=== PATIENT | male | born 1945 | race Two or more races ===

== ENCOUNTER 2021-07-01 13:43 | Emergency (ER) | payer OTHER ==
[~2021-07-01] VITALS: Ht 160 cm; Wt 77.1 kg
[2021-07-01 13:47] VITALS: BP 148/73
== END 2021-07-01 14:10 | disposition left against medical advice (07) ==
LOC: ER 13:43
DX: I10 Essential (primary) hypertension (principal); R07.89 Other chest pain; Z53.21 Procedure and treatment not carried out due to patient leaving prior to being seen by health care provider
CPT/HCPCS: 93005

== ENCOUNTER 2021-10-29 18:10 | Emergency (ER) | payer OTHER ==
[~2021-10-29] VITALS: Ht 162.6 cm; Wt 82.0 kg
[2021-10-29 18:16] VITALS: BP 254/99
== END 2021-10-29 19:04 | disposition left against medical advice (07) ==
LOC: ER 18:10
DX: I10 Essential (primary) hypertension (principal); Z53.21 Procedure and treatment not carried out due to patient leaving prior to being seen by health care provider
CPT/HCPCS: 93005

== ENCOUNTER 2022-06-21 07:02 | Emergency (ER) | payer OTHER ==
[~2022-06-21] VITALS: Ht 162.6 cm; Wt 86.4 kg
[2022-06-21] MEDS ORDERED: HYDROmorphone HCL 2 MG/ML VL/or syr IM ONE (08:30)
[2022-06-21 09:30] VITALS: BP 161/101
== END 2022-06-21 09:51 | disposition home or self-care (01) ==
LOC: ER 07:02
DX: G89.29 Other chronic pain (principal); M54.89 Other dorsalgia
CPT/HCPCS: 96372; 99283; J1170

== ENCOUNTER 2022-07-07 18:56 | Inpatient (IN) | payer OTHER ==
[~2022-07-07] VITALS: Ht 177.8 cm; Wt 96.3 kg
[2022-07-07 19:26] LABS: Basophils # (auto) 0.1 10 ^3/uL (0-0.2); Basophils % (auto) 0.2 % (0.0-2.0); Eosinophils # (auto) 0 10 ^3/uL (0-0.8); Hematocrit 36.6 % (41.0-53.0); Hemoglobin 12.2 g/dL (13.5-17.5); Lymphocytes # (auto) 1.2 10 ^3/uL (0.4-5.4); Lymphocytes % (auto) 4.7 % (10.0-50.0); Mean Corpuscular Hemoglobin 30.3 pg (28.0-32.0); Mean Corpuscular Hgb Conc. 33.5 g/dL (32.0-36.0); Mean Corpuscular Volume 90.6 fL (80.0-100.0); Monocytes # (auto) 2.5 10 ^3/uL (0-1.3); Monocytes % (auto) 9.7 % (0.0-12.0); Neutrophils # (auto) 21.6 10 ^3/uL (1.6-8.6); Neutrophils % (auto) 85.4 % (37.0-80.0); Red Blood Cells 4.04 10^6/uL (4.5-5.90); White Blood Cell 25.3 10^3/uL (4.4-10.8)
[2022-07-07 19:43] LABS: INR 1.03 (0.9-1.15); Partial Thromboplastin Time 25.1 sec (24.6-33.4)
[2022-07-07] MEDS ORDERED: PIPERACILLIN-TAZOB 3.375GM 100 ML IV ONE (19:45)
[2022-07-07 19:47] LABS: Albumin 3.2 g/dL (3.4-5.0); Calcium 9.6 mg/dL (8.5-10.1); Potassium 4.7 mmol/L (3.5-5.1)
[2022-07-07 19:50] LABS: BUN/Creatinine Ratio 27.2 (10.0-20.0); Bilirubin, Total 0.7 mg/dL (0.2-1.0); Total Protein 7.1 g/dL (6.4-8.2)
[2022-07-07] MEDS ORDERED: LEVALBUTEROL HCL 1.25 MG/3 ML NEB NEB SCH (20:12)
[2022-07-07] MEDS ORDERED: FUROSEMIDE 40 MG/4 ML VIAL IV ONE (20:15)
[2022-07-07] MEDS ORDERED: METOPROLOL TARTRATE 1MG/1ML-5ML VIAL IV ONE (20:15)
[2022-07-07] MEDS ORDERED: BUDESONIDE (INHALATION) 0.5 MG/2 ML NEB NEB ONE (20:15)
[2022-07-07] MEDS ORDERED: IOHEXOL 350 MG/ML 100ML IJ ONE (20:17)
[2022-07-07] MEDS ORDERED: LEVALBUTEROL HCL 1.25 MG/3 ML NEB NEB ONE (20:20)
[2022-07-07 21:50] LABS: Urine Bacteria NONE SEEN /hpf (None Seen); Urine Blood Negative /uL (Negative); Urine Mucus FEW (None Seen); Urine WBC <1 /hpf (0 - 3)
[2022-07-07] MEDS ORDERED: LEVO75TA6 PO (22:29)
[2022-07-07] MEDS ORDERED: CLON0.2T PO (22:29)
[2022-07-07] MEDS ORDERED: AMLO-489 PO (22:29)
[2022-07-07] MEDS ORDERED: MONT-8 PO (22:29)
[2022-07-07] MEDS ORDERED: INSLANTI SC (22:29)
[2022-07-07] MEDS ORDERED: MORP15TA PO (22:29)
[2022-07-07] MEDS ORDERED: ATEN50TA PO (22:29)
[2022-07-07] MEDS ORDERED: METH4PAK3 PO (22:29)
[2022-07-07] MEDS ORDERED: INSLISPI SC (22:29)
[2022-07-07] MEDS ORDERED: FLUT50SP NAS (22:29)
[2022-07-07] MEDS ORDERED: DILT120T3 PO (22:29)
[2022-07-07] MEDS ORDERED: AZIT250T9 PO (22:29)
[2022-07-07] MEDS ORDERED: LISI40TA11 (22:29)
[2022-07-07] MEDS ORDERED: AZITHROMYCIN 500MG/ 250ML 250 ML IV ONE (22:30)
[2022-07-07] MEDS ORDERED: cefTRIAXone 1GM/50ML D5W 50 ML IV ONE (22:30)
[2022-07-07] MEDS ORDERED: NITROGLYCERIN 0.4 MG SL TAB SL PRN (22:30)
[2022-07-07] MEDS ORDERED: ALBUTEROL SULF 2.5 MG/0.5ML(0.5%) NEB SOLN NEB PRN (22:30)
[2022-07-07] MEDS ORDERED: MORPHINE SULFATE INJ 2 MG/ml SYRG IV PRN (22:30)
[2022-07-07] MEDS ORDERED: ENOXAPARIN SOD 100 MG/1 ML SYRINGE SC ONE (22:30)
[2022-07-07] MEDS ORDERED: DEXTROSE (50%) 50ML SYRG IV PRN (22:30)
[2022-07-07 22:48] VITALS: BP 166/67
[2022-07-07] MEDS: hydrALAZINE HCL 20 MG/ML VL IV PRN (23:35)
[2022-07-08] VITALS (41 sets, daily range): BP systolic 85–196; BP diastolic 32–85
[2022-07-08] MEDS ORDERED: ONDANSETRON HCL 4 MG/2 ML VIAL IV PRN (00:45)
[2022-07-08] MEDS ORDERED: ALBUTEROL SULF 2.5 MG/0.5ML(0.5%) NEB SOLN NEB ONE (01:45)
[2022-07-08] MEDS ORDERED: IPRATROPIUM BROM 0.5 MG/2.5ML INH SOL NEB ONE (01:45)
[2022-07-08] MEDS: IPRATROPIUM BROM 0.5 MG/2.5ML INH SOL NEB SCH ×6 (01:50→23:18)
[2022-07-08] MEDS: ALBUTEROL SULF 2.5 MG/0.5ML(0.5%) NEB SOLN NEB SCH ×6 (01:50→23:18)
[2022-07-08] MEDS: MORPHINE SULFATE INJ 2 MG/ml SYRG IV PRN ×2 (01:51→09:36)
[2022-07-08] MEDS: LORazepam 2MG/ML-1ML VIAL IV PRN ×2 (01:53→08:45)
[2022-07-08 05:13] LABS: Basophils # (auto) 0.1 10 ^3/uL (0-0.2); Basophils % (auto) 0.2 % (0.0-2.0); Eosinophils # (auto) 0 10 ^3/uL (0-0.8); Hematocrit 35.7 % (41.0-53.0); Hemoglobin 12.2 g/dL (13.5-17.5); Lymphocytes # (auto) 1.6 10 ^3/uL (0.4-5.4); Lymphocytes % (auto) 6.7 % (10.0-50.0); Mean Corpuscular Hemoglobin 30.8 pg (28.0-32.0); Mean Corpuscular Hgb Conc. 34.3 g/dL (32.0-36.0); Mean Corpuscular Volume 89.9 fL (80.0-100.0); Monocytes # (auto) 2.2 10 ^3/uL (0-1.3); Monocytes % (auto) 9.3 % (0.0-12.0); Neutrophils # (auto) 20.1 10 ^3/uL (1.6-8.6); Neutrophils % (auto) 83.8 % (37.0-80.0); Red Blood Cells 3.97 10^6/uL (4.5-5.90)
[2022-07-08 05:29] LABS: BUN/Creatinine Ratio 27.8 (10.0-20.0); Calcium 9.4 mg/dL (8.5-10.1); Potassium 3.9 mmol/L (3.5-5.1)
[2022-07-08 05:32] LABS: Bilirubin, Total 0.8 mg/dL (0.2-1.0); Total Protein 7.7 g/dL (6.4-8.2)
[2022-07-08] MEDS ORDERED: hydrALAZINE HCL 20 MG/ML VL IV ONE (05:45)
[2022-07-08] MEDS ORDERED: FUROSEMIDE 40 MG/4 ML VIAL IV ONE (06:00)
[2022-07-08] MEDS: ACCU-CHEK COMFORT CURVE STRIP VI SCH ×4 (07:26→23:30)
[2022-07-08] MEDS: InsuLIN REG 1unit/0.01ml Soln (100units/ml) SC SCH ×4 (07:31→23:34)
[2022-07-08] MEDS: AZITHROMYCIN 500MG/ 250ML 250 ML IV SCH (08:02)
[2022-07-08] MEDS: cefTRIAXone 1GM/50ML D5W 50 ML IV SCH (08:03)
[2022-07-08] MEDS: LEVOTHYROXINE SODIUM 25 MCG TAB PO SCH (08:26)
[2022-07-08] MEDS: amLODIPine BESYLATE 5 MG TAB PO SCH (08:46)
[2022-07-08] MEDS: MONTELUKAST SODIUM 10 MG TAB PO SCH (08:47)
[2022-07-08] MEDS ORDERED: dilTIAZem HCL 60 MG TAB PO SCH (10:00)
[2022-07-08] MEDS ORDERED: ATENOLOL 50 MG TAB PO SCH (10:00)
[2022-07-08] MEDS ORDERED: ENOXAPARIN SOD 100 MG/1 ML SYRINGE SC SCH (10:00)
[2022-07-08] MEDS ORDERED: HALOPERIDOL LACTATE 5 MG/ML INJ VIAL IM ONE (10:45)
[2022-07-08] MEDS ORDERED: KETOROLAC TROMETH 30 MG/ML 1ML VIAL IV ONE (11:00)
[2022-07-08] MEDS ORDERED: ROCURONIUM 10MG/ML 10ML VIAL IV ONE ×2 (11:33→12:00)
[2022-07-08] MEDS ORDERED: ETOMIDATE (2MG/ML) 20ML VIAL IV ONE ×2 (11:33→12:00)
[2022-07-08] MEDS ORDERED: PROPOFOL 100 ML IV ONE (11:33)
[2022-07-08] MEDS ORDERED: MIDAZOLAM DRIP 50 mg/50mL 50 ML IV ONE (11:34)
[2022-07-08] MEDS ORDERED: fentaNYL Drip 2500mCg/250mlNS 250 ML IV ONE (11:35)
[2022-07-08] MEDS: fentaNYL Drip 2500mCg/250mlNS 250 ML IV SCH (11:42)
[2022-07-08] MEDS: MIDAZOLAM DRIP 50 mg/50mL 50 ML IV SCH ×3 (11:46→21:38)
[2022-07-08] MEDS: PROPOFOL 100 ML IV SCH ×3 (11:58→21:42)
[2022-07-08] MEDS ORDERED: SODIUM CHLORIDE 0.9% 1,000 ML IV SCH (12:00)
[2022-07-08] MEDS: hydrALAZINE HCL 20 MG/ML VL IV PRN (12:53)
[2022-07-08] MEDS ORDERED: CLINIMIX PER PHARMACY 0 ML IV SCH (14:15)
[2022-07-08 15:59] LABS: Magnesium 2.6 mg/dL (1.6-2.6); Phosphorus 3.8 mg/dL (2.5-4.90)
[2022-07-08] MEDS ORDERED: AMIODARONE HCL 150 MG in D5W 5% 100 ML IV ONE ×4 (18:00)
[2022-07-08] MEDS: FUROSEMIDE 40 MG/4 ML VIAL IV SCH (18:00)
[2022-07-08] MEDS ORDERED: AMIODARONE 450mg/250ml AE 250 ML IV SCH ×2 (18:15)
[2022-07-08] MEDS ORDERED: NOREPINEPHRINE 8 MG/250ML KIT 250 ML IV ONE (18:39)
[2022-07-08] MEDS: NOREPINEPHRINE 8 MG/250ML KIT 250 ML IV SCH (18:47)
[2022-07-08] MEDS: AMINO ACID INFUSION IN D10W 1,000 ML IV NR (20:43)
[2022-07-08] MEDS: ENOXAPARIN SOD 80 MG/0.8ML SYRINGE SC SCH (21:41)
[2022-07-08] MEDS: POTASSIUM CHL 10 Meq TABLET PO SCH (21:41)
[2022-07-08] MEDS: methylPREDNISolone SOD SUCC 40 MG/ML VL IV SCH (21:41)
[2022-07-08] MEDS: BUDESONIDE (INHALATION) 0.5 MG/2 ML NEB NEB SCH (23:18)
[2022-07-09] VITALS (105 sets, daily range): BP systolic 88–147; BP diastolic 39–62
[2022-07-09] MEDS ORDERED: DEXTROSE (50%) 50ML SYRG IV SCH
[2022-07-09] MEDS ORDERED: AMIODARONE 450mg/250ml AE 250 ML IV SCH (00:15)
[2022-07-09] MEDS: PROPOFOL 100 ML IV SCH ×4 (02:14→23:43)
[2022-07-09] MEDS: IPRATROPIUM BROM 0.5 MG/2.5ML INH SOL NEB SCH ×6 (02:35→22:01)
[2022-07-09] MEDS: ALBUTEROL SULF 2.5 MG/0.5ML(0.5%) NEB SOLN NEB SCH ×6 (02:35→22:01)
[2022-07-09] MEDS: MIDAZOLAM DRIP 50 mg/50mL 50 ML IV SCH ×4 (03:10→21:56)
[2022-07-09 04:31] LABS: Basophils # (auto) 0 10 ^3/uL (0-0.2); Basophils % (auto) 0.1 % (0.0-2.0); Eosinophils # (auto) 0 10 ^3/uL (0-0.8); Hematocrit 31.6 % (41.0-53.0); Hemoglobin 10.5 g/dL (13.5-17.5); Lymphocytes # (auto) 0.7 10 ^3/uL (0.4-5.4); Lymphocytes % (auto) 3.5 % (10.0-50.0); Mean Corpuscular Hemoglobin 30.5 pg (28.0-32.0); Mean Corpuscular Hgb Conc. 33.1 g/dL (32.0-36.0); Mean Corpuscular Volume 92.1 fL (80.0-100.0); Monocytes # (auto) 0.5 10 ^3/uL (0-1.3); Monocytes % (auto) 2.7 % (0.0-12.0); Neutrophils # (auto) 18.4 10 ^3/uL (1.6-8.6); Neutrophils % (auto) 93.7 % (37.0-80.0); Red Blood Cells 3.43 10^6/uL (4.5-5.90); Red Cell Distribution Width 14.7 % (11.8-14.3); White Blood Cell 19.7 10^3/uL (4.4-10.8)
[2022-07-09 04:48] LABS: Albumin 2.3 g/dL (3.4-5.0); Calcium 8.6 mg/dL (8.5-10.1); Magnesium 2.6 mg/dL (1.6-2.6); Potassium 4.4 mmol/L (3.5-5.1)
[2022-07-09 04:52] LABS: BUN/Creatinine Ratio 27.5 (10.0-20.0); Bilirubin, Total 0.7 mg/dL (0.2-1.0); Phosphorus 3.5 mg/dL (2.5-4.90); Total Protein 6.2 g/dL (6.4-8.2)
[2022-07-09] MEDS: ACCU-CHEK COMFORT CURVE STRIP VI SCH ×7 (05:46→22:30)
[2022-07-09] MEDS: InsuLIN REG 1unit/0.01ml Soln (100units/ml) SC SCH ×3 (05:48→11:53)
[2022-07-09] MEDS ORDERED: DEXTROSE (50%) 50ML SYRG IV PRN ×4 (06:00→22:30)
[2022-07-09] MEDS: methylPREDNISolone SOD SUCC 40 MG/ML VL IV SCH ×3 (06:21→21:31)
[2022-07-09] MEDS: FUROSEMIDE 40 MG/4 ML VIAL IV SCH ×2 (06:21→18:20)
[2022-07-09] MEDS: LEVOTHYROXINE SODIUM 25 MCG TAB PO SCH (06:22)
[2022-07-09] MEDS: BUDESONIDE (INHALATION) 0.5 MG/2 ML NEB NEB SCH ×2 (06:35→18:31)
[2022-07-09] MEDS: cefTRIAXone 1GM/50ML D5W 50 ML IV SCH (08:03)
[2022-07-09] MEDS: PANTOPRAZOLE 40 MG/10 ML VIAL INJ IV SCH (08:48)
[2022-07-09] MEDS: ENOXAPARIN SOD 80 MG/0.8ML SYRINGE SC SCH ×2 (08:49→21:32)
[2022-07-09] MEDS: POTASSIUM CHL 10 Meq TABLET PO SCH ×2 (08:50→21:31)
[2022-07-09] MEDS: amLODIPine BESYLATE 5 MG TAB PO SCH (08:51)
[2022-07-09] MEDS: MONTELUKAST SODIUM 10 MG TAB PO SCH (10:00)
[2022-07-09] MEDS ORDERED: ENOXAPARIN SOD 40 MG/0.4 ML SYRINGE SC SCH (10:00)
[2022-07-09] MEDS: AZITHROMYCIN 500MG/ 250ML 250 ML IV SCH (10:34)
[2022-07-09] MEDS: fentaNYL Drip 2500mCg/250mlNS 250 ML IV SCH (12:19)
[2022-07-09] MEDS ORDERED: METOPROLOL TARTRATE 25 MG TAB PO ONE (13:15)
[2022-07-09] MEDS: NOREPINEPHRINE 8 MG/250ML KIT 250 ML IV SCH (15:30)
[2022-07-09] MEDS ORDERED: InsuLIN REG 1unit/0.01ml Soln (100units/ml) SC SCH (18:00)
[2022-07-09] MEDS ORDERED: ACCU-CHEK COMFORT CURVE STRIP VI SCH (18:00)
[2022-07-09] MEDS ORDERED: InsuLIN R (HUMAN) 100 UNITS in SODIUM CHL 0.9% 99 ML IV SCH ×2 (19:45→22:30)
[2022-07-09] MEDS: AMINO ACID INFUSION IN D10W 1,000 ML IV NR (20:07)
[2022-07-09] MEDS: METOPROLOL TARTRATE 25 MG TAB PO SCH (21:32)
[2022-07-09] MEDS: INSULIN LANTUS (GLARGINE) 1 /0.01ml (100units/ml) SC SCH (21:40)
[2022-07-10] VITALS (82 sets, daily range): BP systolic 99–136; BP diastolic 41–58
[2022-07-10] MEDS ORDERED: InsuLIN R (HUMAN) 100 UNITS in SODIUM CHL 0.9% 99 ML IV SCH (00:30)
[2022-07-10] MEDS: ALBUTEROL SULF 2.5 MG/0.5ML(0.5%) NEB SOLN NEB SCH ×6 (00:44→22:48)
[2022-07-10] MEDS: IPRATROPIUM BROM 0.5 MG/2.5ML INH SOL NEB SCH ×6 (00:44→22:48)
[2022-07-10] MEDS: fentaNYL Drip 2500mCg/250mlNS 250 ML IV SCH (01:22)
[2022-07-10] MEDS: ACCU-CHEK COMFORT CURVE STRIP VI SCH ×17 (01:30→23:41)
[2022-07-10] MEDS: InsuLIN R (HUMAN) 100 UNITS in SODIUM CHL 0.9% 99 ML IV SCH (01:59)
[2022-07-10] MEDS: MIDAZOLAM DRIP 50 mg/50mL 50 ML IV SCH ×2 (03:10→18:32)
[2022-07-10 04:44] LABS: Basophils # (auto) 0 10 ^3/uL (0-0.2); Eosinophils # (auto) 0 10 ^3/uL (0-0.8); Hematocrit 28.3 % (41.0-53.0); Hemoglobin 9.4 g/dL (13.5-17.5); Lymphocytes # (auto) 0.5 10 ^3/uL (0.4-5.4); Lymphocytes % (auto) 3.4 % (10.0-50.0); Mean Corpuscular Hemoglobin 30.3 pg (28.0-32.0); Mean Corpuscular Hgb Conc. 33.1 g/dL (32.0-36.0); Mean Corpuscular Volume 91.3 fL (80.0-100.0); Monocytes % (auto) 6.4 % (0.0-12.0); Neutrophils # (auto) 13.6 10 ^3/uL (1.6-8.6); Neutrophils % (auto) 90.2 % (37.0-80.0); Nucleated Red Blood Cells % 0.2 %; Red Cell Distribution Width 14.4 % (11.8-14.3); White Blood Cell 15.1 10^3/uL (4.4-10.8)
[2022-07-10] MEDS: PROPOFOL 100 ML IV SCH ×2 (05:00→20:10)
[2022-07-10 05:13] LABS: Calcium 8.5 mg/dL (8.5-10.1); Magnesium 2.5 mg/dL (1.6-2.6); Potassium 3.6 mmol/L (3.5-5.1)
[2022-07-10 05:19] LABS: Phosphorus 4.8 mg/dL (2.5-4.90)
[2022-07-10] MEDS: FUROSEMIDE 40 MG/4 ML VIAL IV SCH (05:56)
[2022-07-10] MEDS: methylPREDNISolone SOD SUCC 40 MG/ML VL IV SCH ×3 (05:56→21:11)
[2022-07-10] MEDS: LEVOTHYROXINE SODIUM 25 MCG TAB PO SCH (06:24)
[2022-07-10] MEDS: INSULIN LANTUS (GLARGINE) 1 /0.01ml (100units/ml) SC SCH ×2 (06:25→21:13)
[2022-07-10] MEDS: PANTOPRAZOLE 40 MG/10 ML VIAL INJ IV SCH (08:53)
[2022-07-10] MEDS: cefTRIAXone 1GM/50ML D5W 50 ML IV SCH (08:53)
[2022-07-10] MEDS: AZITHROMYCIN 500MG/ 250ML 250 ML IV SCH (08:54)
[2022-07-10] MEDS: ENOXAPARIN SOD 80 MG/0.8ML SYRINGE SC SCH (08:54)
[2022-07-10] MEDS: METOPROLOL TARTRATE 25 MG TAB PO SCH ×2 (08:55→21:12)
[2022-07-10] MEDS: POTASSIUM CHL 10 Meq TABLET PO SCH ×2 (08:55→21:11)
[2022-07-10] MEDS: MONTELUKAST SODIUM 10 MG TAB PO SCH (08:56)
[2022-07-10] MEDS: amLODIPine BESYLATE 5 MG TAB PO SCH (08:56)
[2022-07-10] MEDS: BUDESONIDE (INHALATION) 0.5 MG/2 ML NEB NEB SCH ×2 (10:25→18:23)
[2022-07-10] MEDS ORDERED: MIDAZOLAM HCL 2MG/2ML 2ml VIAL (1mg/ml) ONE (11:49)
[2022-07-10] MEDS ORDERED: diphenhdrAMINE HCL 50 MG/1 ML VL ONE (11:49)
[2022-07-10] MEDS ORDERED: fentaNYL CITRATE 100 MCG/2 ML VL ONE (11:49)
[2022-07-10] MEDS ORDERED: LIDOCAINE 2% JELLY 11ml (GLYDO) ONE (11:50)
[2022-07-10] MEDS ORDERED: EPINEPHrine HCL 1 MG/1 ML AMP ONE (11:50)
[2022-07-10 12:45] LABS: Calcium 8.3 mg/dL (8.5-10.1); Potassium 4.8 mmol/L (3.5-5.1)
[2022-07-10 13:49] LABS: BUN/Creatinine Ratio 26.2 (10.0-20.0)
[2022-07-10] MEDS ORDERED: VANCOMYCIN PER PHARMACY 0 MG IV SCH (14:45)
[2022-07-10] MEDS ORDERED: BUMETANIDE 2.5mg/10ml (0.25 mg/ml) INJ IV ONE (14:45)
[2022-07-10] MEDS ORDERED: VANCOMYCIN 1GM/250ML 250 ML IV ONE (16:30)
[2022-07-10] MEDS: NOREPINEPHRINE 8 MG/250ML KIT 250 ML IV SCH (18:45)
[2022-07-10] MEDS: AMINO ACID INFUSION IN D10W 1,000 ML IV NR (19:23)
[2022-07-11] VITALS (84 sets, daily range): BP systolic 87–179; BP diastolic 38–77
[2022-07-11] MEDS: ACCU-CHEK COMFORT CURVE STRIP VI SCH ×15 (01:24→23:50)
[2022-07-11] MEDS: InsuLIN R (HUMAN) 100 UNITS in SODIUM CHL 0.9% 99 ML IV SCH ×2 (01:45→04:48)
[2022-07-11] MEDS: ALBUTEROL SULF 2.5 MG/0.5ML(0.5%) NEB SOLN NEB SCH ×5 (02:03→22:16)
[2022-07-11] MEDS: IPRATROPIUM BROM 0.5 MG/2.5ML INH SOL NEB SCH ×5 (02:03→22:16)
[2022-07-11] MEDS: PROPOFOL 100 ML IV SCH ×3 (03:52→23:51)
[2022-07-11] MEDS: fentaNYL Drip 2500mCg/250mlNS 250 ML IV SCH (03:53)
[2022-07-11 05:39] LABS: Calcium 8.6 mg/dL (8.5-10.1); Potassium 4.8 mmol/L (3.5-5.1)
[2022-07-11 05:45] LABS: Albumin 2.1 g/dL (3.4-5.0); BUN/Creatinine Ratio 31.3 (10.0-20.0); Bilirubin, Total 0.4 mg/dL (0.2-1.0); Magnesium 2.7 mg/dL (1.6-2.6); Phosphorus 6.5 mg/dL (2.5-4.90)
[2022-07-11] MEDS: methylPREDNISolone SOD SUCC 40 MG/ML VL IV SCH (05:57)
[2022-07-11] MEDS: BUDESONIDE (INHALATION) 0.5 MG/2 ML NEB NEB SCH ×2 (06:27→22:16)
[2022-07-11] MEDS: LEVOTHYROXINE SODIUM 25 MCG TAB PO SCH (06:45)
[2022-07-11] MEDS: INSULIN LANTUS (GLARGINE) 1 /0.01ml (100units/ml) SC SCH ×2 (06:48→21:45)
[2022-07-11] MEDS ORDERED: VANCOMYCIN 1GM/250ML 250 ML IV ONE (07:30)
[2022-07-11] MEDS: AZITHROMYCIN 500MG/ 250ML 250 ML IV SCH (08:41)
[2022-07-11] MEDS: PANTOPRAZOLE 40 MG/10 ML VIAL INJ IV SCH (08:41)
[2022-07-11] MEDS: FUROSEMIDE 40 MG/4 ML VIAL IV SCH (08:42)
[2022-07-11] MEDS: METOPROLOL TARTRATE 25 MG TAB PO SCH ×2 (08:42→21:43)
[2022-07-11] MEDS: cefTRIAXone 1GM/50ML D5W 50 ML IV SCH (08:42)
[2022-07-11] MEDS: MONTELUKAST SODIUM 10 MG TAB PO SCH (08:43)
[2022-07-11] MEDS: ENOXAPARIN SOD 80 MG/0.8ML SYRINGE SC SCH (08:43)
[2022-07-11] MEDS: POTASSIUM CHL 10 Meq TABLET PO SCH ×2 (08:43→21:42)
[2022-07-11] MEDS: amLODIPine BESYLATE 5 MG TAB PO SCH (08:43)
[2022-07-11 12:51] LABS: Urine Bacteria FEW /hpf (None Seen); Urine Blood Negative /uL (Negative); Urine Hyaline Cast FEW /lpf (0 - 2); Urine Specific Gravity 1.013 (1.001-1.035); Urine WBC 10 /hpf (0 - 3)
[2022-07-11] MEDS: MIDODRINE HCL 10 MG TAB PO SCH ×2 (13:30→17:19)
[2022-07-11] MEDS: NOREPINEPHRINE 8 MG/250ML KIT 250 ML IV SCH (18:45)
[2022-07-11] MEDS: AMINO ACID INFUSION IN D10W 1,000 ML IV NR (19:27)
[2022-07-11] MEDS: MIDAZOLAM DRIP 50 mg/50mL 50 ML IV SCH (23:50)
[2022-07-12] VITALS (107 sets, daily range): BP systolic 84–183; BP diastolic 44–74
[2022-07-12] MEDS: ACCU-CHEK COMFORT CURVE STRIP VI SCH ×10 (00:28→23:56)
[2022-07-12] MEDS: IPRATROPIUM BROM 0.5 MG/2.5ML INH SOL NEB SCH ×6 (01:51→22:13)
[2022-07-12] MEDS: ALBUTEROL SULF 2.5 MG/0.5ML(0.5%) NEB SOLN NEB SCH ×6 (01:51→22:13)
[2022-07-12 04:15] LABS: Hematocrit 33.8 % (41.0-53.0); Hemoglobin 11.6 g/dL (13.5-17.5); Mean Corpuscular Hemoglobin 30.1 pg (28.0-32.0); Mean Corpuscular Hgb Conc. 34.4 g/dL (32.0-36.0); Mean Corpuscular Volume 87.6 fL (80.0-100.0); Red Blood Cells 3.86 10^6/uL (4.5-5.90); Red Cell Distribution Width 13.4 % (11.8-14.3)
[2022-07-12 04:25] LABS: Basophils % (manual) 0 (0.0-2.0); Blast Cells 0; Eosinophils % (manual) 0 (0-7); Metamyelocytes % 0; Myelocytes % 0; Promyelocytes % 0; Reactive Lymphocytes 0
[2022-07-12 04:33] LABS: Albumin 2.1 g/dL (3.4-5.0); BUN/Creatinine Ratio 40.1 (10.0-20.0); Calcium 8.3 mg/dL (8.5-10.1); Potassium 4.5 mmol/L (3.5-5.1)
[2022-07-12 04:36] LABS: Bilirubin, Total 0.3 mg/dL (0.2-1.0)
[2022-07-12 05:11] LABS: Band Neutrophils % (manual) 2; Lymphocytes % (manual) 13 (10.0-50.0); Monocytes % (manual) 5 (0-12)
[2022-07-12] MEDS: MIDODRINE HCL 10 MG TAB PO SCH ×3 (05:45→17:51)
[2022-07-12] MEDS: fentaNYL Drip 2500mCg/250mlNS 250 ML IV SCH (06:18)
[2022-07-12] MEDS: LEVOTHYROXINE SODIUM 25 MCG TAB PO SCH (06:31)
[2022-07-12] MEDS: INSULIN LANTUS (GLARGINE) 1 /0.01ml (100units/ml) SC SCH ×2 (06:32→22:15)
[2022-07-12] MEDS: InsuLIN REG 1unit/0.01ml Soln (100units/ml) SC SCH ×5 (08:00→23:58)
[2022-07-12] MEDS ORDERED: DEXTROSE (50%) 50ML SYRG IV PRN (08:00)
[2022-07-12] MEDS: PANTOPRAZOLE 40 MG/10 ML VIAL INJ IV SCH (08:44)
[2022-07-12] MEDS: AZITHROMYCIN 500MG/ 250ML 250 ML IV SCH (08:44)
[2022-07-12] MEDS: FUROSEMIDE 40 MG/4 ML VIAL IV SCH (08:44)
[2022-07-12] MEDS: cefTRIAXone 1GM/50ML D5W 50 ML IV SCH (08:44)
[2022-07-12] MEDS: POTASSIUM CHL 10 Meq TABLET PO SCH ×2 (08:45→22:00)
[2022-07-12] MEDS: ENOXAPARIN SOD 80 MG/0.8ML SYRINGE SC SCH (08:45)
[2022-07-12] MEDS: METOPROLOL TARTRATE 25 MG TAB PO SCH ×2 (08:45→22:14)
[2022-07-12] MEDS: amLODIPine BESYLATE 5 MG TAB PO SCH (08:45)
[2022-07-12] MEDS: MONTELUKAST SODIUM 10 MG TAB PO SCH (08:46)
[2022-07-12] MEDS: BUDESONIDE (INHALATION) 0.5 MG/2 ML NEB NEB SCH ×2 (09:56→19:08)
[2022-07-12] MEDS: SODIUM CHLORIDE 0.9% 1,000 ML IV SCH (16:53)
[2022-07-12] MEDS: NOREPINEPHRINE 8 MG/250ML KIT 250 ML IV SCH (18:59)
[2022-07-12] MEDS: CEFEPIME 2 GM in SODIUM CHL 0.9% 50 ML IV SCH (20:22)
[2022-07-12] MEDS: PROPOFOL 100 ML IV SCH (23:54)
[2022-07-12] MEDS: ACETAMINOPHEN 325 MG TAB PO PRN (23:54)
[2022-07-13] VITALS (104 sets, daily range): BP systolic 83–177; BP diastolic 38–72
[2022-07-13] MEDS: ALBUTEROL SULF 2.5 MG/0.5ML(0.5%) NEB SOLN NEB SCH ×4 (02:19→18:28)
[2022-07-13] MEDS: IPRATROPIUM BROM 0.5 MG/2.5ML INH SOL NEB SCH ×4 (02:19→18:28)
[2022-07-13] MEDS: ACCU-CHEK COMFORT CURVE STRIP VI SCH ×5 (03:54→20:20)
[2022-07-13] MEDS: InsuLIN REG 1unit/0.01ml Soln (100units/ml) SC SCH ×5 (03:56→20:21)
[2022-07-13] MEDS: PROPOFOL 100 ML IV SCH ×2 (04:03→07:50)
[2022-07-13 04:58] LABS: Calcium 8.2 mg/dL (8.5-10.1); Potassium 4.6 mmol/L (3.5-5.1)
[2022-07-13 05:02] LABS: BUN/Creatinine Ratio 50.2 (10.0-20.0)
[2022-07-13] MEDS: MIDODRINE HCL 10 MG TAB PO SCH ×3 (06:00→12:30)
[2022-07-13] MEDS: BUDESONIDE (INHALATION) 0.5 MG/2 ML NEB NEB SCH ×2 (06:09→18:28)
[2022-07-13] MEDS: LEVOTHYROXINE SODIUM 25 MCG TAB PO SCH (06:36)
[2022-07-13] MEDS: INSULIN LANTUS (GLARGINE) 1 /0.01ml (100units/ml) SC SCH ×2 (06:37→22:02)
[2022-07-13 08:01] LABS: Hematocrit 29.7 % (41.0-53.0); Hemoglobin 10.2 g/dL (13.5-17.5); Mean Corpuscular Hemoglobin 30.5 pg (28.0-32.0); Mean Corpuscular Hgb Conc. 34.4 g/dL (32.0-36.0); Mean Corpuscular Volume 88.8 fL (80.0-100.0); Red Blood Cells 3.35 10^6/uL (4.5-5.90); Red Cell Distribution Width 13.6 % (11.8-14.3); White Blood Cell 17.4 10^3/uL (4.4-10.8)
[2022-07-13 08:11] LABS: Basophils % (manual) 0 (0.0-2.0); Blast Cells 0; Eosinophils % (manual) 0 (0-7); Metamyelocytes % 0; Myelocytes % 0; Promyelocytes % 0; Reactive Lymphocytes 0
[2022-07-13] MEDS: AZITHROMYCIN 500MG/ 250ML 250 ML IV SCH (08:34)
[2022-07-13] MEDS: FUROSEMIDE 40 MG/4 ML VIAL IV SCH (08:34)
[2022-07-13] MEDS: PANTOPRAZOLE 40 MG/10 ML VIAL INJ IV SCH (08:34)
[2022-07-13] MEDS: amLODIPine BESYLATE 5 MG TAB PO SCH (08:35)
[2022-07-13] MEDS: POTASSIUM CHL 10 Meq TABLET PO SCH (08:35)
[2022-07-13] MEDS: SODIUM CHLORIDE 0.9% 1,000 ML IV SCH (08:35)
[2022-07-13] MEDS: MONTELUKAST SODIUM 10 MG TAB PO SCH (08:37)
[2022-07-13] MEDS: METOPROLOL TARTRATE 25 MG TAB PO SCH ×2 (08:37→22:00)
[2022-07-13] MEDS: ENOXAPARIN SOD 80 MG/0.8ML SYRINGE SC SCH (08:38)
[2022-07-13] MEDS ORDERED: VANCOMYCIN 500 MG in D5W 5% 100 ML IV ONE (09:00)
[2022-07-13 09:35] LABS: Band Neutrophils % (manual) 1; Lymphocytes % (manual) 19 (10.0-50.0); Monocytes % (manual) 11 (0-12)
[2022-07-13] MEDS: MIDAZOLAM DRIP 50 mg/50mL 50 ML IV SCH (12:00)
[2022-07-13] MEDS: fentaNYL Drip 2500mCg/250mlNS 250 ML IV SCH (12:00)
[2022-07-13] MEDS ORDERED: METOPROLOL TARTRATE 1MG/1ML-5ML VIAL IV PRN (13:15)
[2022-07-13] MEDS ORDERED: DEXTROSE (50%) 50ML SYRG IV PRN (14:00)
[2022-07-13] MEDS: NOREPINEPHRINE 8 MG/250ML KIT 250 ML IV SCH (15:18)
[2022-07-13] MEDS: CEFEPIME 2 GM in SODIUM CHL 0.9% 50 ML IV SCH (20:19)
[2022-07-14] VITALS (98 sets, daily range): BP systolic 114–205; BP diastolic 44–84
[2022-07-14] MEDS: ACCU-CHEK COMFORT CURVE STRIP VI SCH ×6 (00:11→20:42)
[2022-07-14] MEDS: InsuLIN REG 1unit/0.01ml Soln (100units/ml) SC SCH ×6 (00:12→20:42)
[2022-07-14] MEDS: IPRATROPIUM BROM 0.5 MG/2.5ML INH SOL NEB SCH ×4 (00:16→19:08)
[2022-07-14] MEDS: ALBUTEROL SULF 2.5 MG/0.5ML(0.5%) NEB SOLN NEB SCH ×4 (00:16→19:09)
[2022-07-14] MEDS: PROPOFOL 100 ML IV SCH ×2 (00:31→19:15)
[2022-07-14 03:50] LABS: Hematocrit 30.7 % (41.0-53.0); Hemoglobin 10.6 g/dL (13.5-17.5); Mean Corpuscular Hemoglobin 30.9 pg (28.0-32.0); Mean Corpuscular Hgb Conc. 34.6 g/dL (32.0-36.0); Mean Corpuscular Volume 89.2 fL (80.0-100.0); Red Blood Cells 3.44 10^6/uL (4.5-5.90); Red Cell Distribution Width 13.6 % (11.8-14.3)
[2022-07-14 03:57] LABS: Band Neutrophils % (manual) 0; Basophils % (manual) 0 (0.0-2.0); Blast Cells 0; Metamyelocytes % 0; Myelocytes % 0; Promyelocytes % 0; Reactive Lymphocytes 0
[2022-07-14] MEDS: SODIUM CHLORIDE 0.9% 1,000 ML IV SCH ×3 (04:06→19:41)
[2022-07-14 04:12] LABS: Calcium 8.4 mg/dL (8.5-10.1)
[2022-07-14 04:19] LABS: Eosinophils % (manual) 1 (0-7); Lymphocytes % (manual) 4 (10.0-50.0); Monocytes % (manual) 11 (0-12)
[2022-07-14 04:20] LABS: BUN/Creatinine Ratio 59.4 (10.0-20.0)
[2022-07-14] MEDS: MIDODRINE HCL 10 MG TAB PO SCH (05:56)
[2022-07-14] MEDS: LEVOTHYROXINE SODIUM 25 MCG TAB PO SCH (05:57)
[2022-07-14] MEDS: BUDESONIDE (INHALATION) 0.5 MG/2 ML NEB NEB SCH (06:13)
[2022-07-14] MEDS: INSULIN LANTUS (GLARGINE) 1 /0.01ml (100units/ml) SC SCH ×2 (06:39→21:32)
[2022-07-14] MEDS: AZITHROMYCIN 500MG/ 250ML 250 ML IV SCH (08:02)
[2022-07-14] MEDS: PANTOPRAZOLE 40 MG/10 ML VIAL INJ IV SCH (08:02)
[2022-07-14] MEDS: METOPROLOL TARTRATE 25 MG TAB PO SCH ×2 (08:03→21:31)
[2022-07-14] MEDS: MONTELUKAST SODIUM 10 MG TAB PO SCH (08:03)
[2022-07-14] MEDS: ENOXAPARIN SOD 80 MG/0.8ML SYRINGE SC SCH (08:04)
[2022-07-14] MEDS: amLODIPine BESYLATE 5 MG TAB PO SCH (08:04)
[2022-07-14] MEDS: POTASSIUM CHL 10 Meq TABLET PO SCH (08:05)
[2022-07-14] MEDS: fentaNYL Drip 2500mCg/250mlNS 250 ML IV SCH (08:19)
[2022-07-14] MEDS ORDERED: FUROSEMIDE 20 MG/2 ML VIAL IV SCH (10:00)
[2022-07-14 16:15] LABS: Magnesium 3.6 mg/dL (1.6-2.6); Phosphorus 8.5 mg/dL (2.5-4.90)
[2022-07-14] MEDS ORDERED: VANCOMYCIN 500 MG in D5W 5% 100 ML IV ONE (20:00)
[2022-07-14] MEDS: AMINO ACID INFUSION IN D10W 1,000 ML IV NR (20:28)
[2022-07-14] MEDS: CEFEPIME 2 GM in SODIUM CHL 0.9% 50 ML IV SCH (20:29)
[2022-07-14] MEDS: hydrALAZINE HCL 20 MG/ML VL IV PRN (21:23)
[2022-07-15] VITALS (106 sets, daily range): BP systolic 102–227; BP diastolic 40–93
[2022-07-15] MEDS: InsuLIN REG 1unit/0.01ml Soln (100units/ml) SC SCH ×6 (00:13→20:15)
[2022-07-15] MEDS: ACCU-CHEK COMFORT CURVE STRIP VI SCH ×6 (00:13→19:58)
[2022-07-15] MEDS: PROPOFOL 100 ML IV SCH ×5 (00:45→19:22)
[2022-07-15] MEDS: BUDESONIDE (INHALATION) 0.5 MG/2 ML NEB NEB SCH ×3 (01:02→18:07)
[2022-07-15] MEDS: ALBUTEROL SULF 2.5 MG/0.5ML(0.5%) NEB SOLN NEB SCH ×4 (01:02→18:06)
[2022-07-15] MEDS: IPRATROPIUM BROM 0.5 MG/2.5ML INH SOL NEB SCH ×3 (01:02→18:06)
[2022-07-15] MEDS: SODIUM CHLORIDE 0.9% 1,000 ML IV SCH ×4 (03:30→09:45)
[2022-07-15 04:21] LABS: Hematocrit 28.2 % (41.0-53.0); Hemoglobin 9.7 g/dL (13.5-17.5); Mean Corpuscular Hemoglobin 30.9 pg (28.0-32.0); Mean Corpuscular Hgb Conc. 34.3 g/dL (32.0-36.0); Red Blood Cells 3.13 10^6/uL (4.5-5.90); Red Cell Distribution Width 13.6 % (11.8-14.3)
[2022-07-15 04:47] LABS: Albumin 1.9 g/dL (3.4-5.0); Calcium 8.2 mg/dL (8.5-10.1); Phosphorus 6.5 mg/dL (2.5-4.90); Potassium 5.1 mmol/L (3.5-5.1)
[2022-07-15 04:58] LABS: Basophils % (manual) 0 (0.0-2.0); Blast Cells 0; Metamyelocytes % 0; Myelocytes % 0; Promyelocytes % 0; Reactive Lymphocytes 0
[2022-07-15 05:25] LABS: Magnesium 3.4 mg/dL (1.6-2.6)
[2022-07-15 05:34] LABS: BUN/Creatinine Ratio 68.6 (10.0-20.0)
[2022-07-15 06:01] LABS: Band Neutrophils % (manual) 2; Eosinophils % (manual) 1 (0-7); Lymphocytes % (manual) 3 (10.0-50.0); Monocytes % (manual) 1 (0-12)
[2022-07-15] MEDS: LEVOTHYROXINE SODIUM 25 MCG TAB PO SCH (06:30)
[2022-07-15] MEDS: INSULIN LANTUS (GLARGINE) 1 /0.01ml (100units/ml) SC SCH ×2 (06:30→21:57)
[2022-07-15] MEDS: PANTOPRAZOLE 40 MG/10 ML VIAL INJ IV SCH (09:36)
[2022-07-15] MEDS: AZITHROMYCIN 500MG/ 250ML 250 ML IV SCH (09:36)
[2022-07-15] MEDS: POTASSIUM CHL 10 Meq TABLET PO SCH (09:36)
[2022-07-15] MEDS: ENOXAPARIN SOD 80 MG/0.8ML SYRINGE SC SCH ×2 (09:40→21:54)
[2022-07-15] MEDS: MONTELUKAST SODIUM 10 MG TAB PO SCH (09:40)
[2022-07-15] MEDS: METOPROLOL TARTRATE 25 MG TAB PO SCH ×2 (10:00→21:54)
[2022-07-15] MEDS: amLODIPine BESYLATE 5 MG TAB PO SCH (10:00)
[2022-07-15] MEDS: fentaNYL Drip 2500mCg/250mlNS 250 ML IV SCH ×2 (12:00→17:12)
[2022-07-15] MEDS: hydrALAZINE HCL 20 MG/ML VL IV PRN (12:39)
[2022-07-15] MEDS ORDERED: VANCOMYCIN 500 MG in D5W 5% 100 ML IV ONE (17:00)
[2022-07-15] MEDS: AMINO ACID INFUSION IN D10W 1,000 ML IV NR (19:57)
[2022-07-15] MEDS: CEFEPIME 2 GM in SODIUM CHL 0.9% 50 ML IV SCH (19:57)
[2022-07-15] MEDS: LABETALOL HCL 5 MG/ML 4ML SYRINGE IV PRN (22:24)
[2022-07-16] VITALS (104 sets, daily range): BP systolic 128–252; BP diastolic 40–86
[2022-07-16] MEDS: ACCU-CHEK COMFORT CURVE STRIP VI SCH ×6 (00:12→20:06)
[2022-07-16] MEDS: InsuLIN REG 1unit/0.01ml Soln (100units/ml) SC SCH ×6 (00:14→20:05)
[2022-07-16] MEDS: IPRATROPIUM BROM 0.5 MG/2.5ML INH SOL NEB SCH ×4 (00:42→18:25)
[2022-07-16] MEDS: ALBUTEROL SULF 2.5 MG/0.5ML(0.5%) NEB SOLN NEB SCH ×4 (00:42→18:25)
[2022-07-16] MEDS: LABETALOL HCL 5 MG/ML 4ML SYRINGE IV PRN ×3 (03:28→17:04)
[2022-07-16 04:25] LABS: Hematocrit 31.2 % (41.0-53.0); Hemoglobin 10.5 g/dL (13.5-17.5); Mean Corpuscular Hemoglobin 30.4 pg (28.0-32.0); Mean Corpuscular Hgb Conc. 33.5 g/dL (32.0-36.0); Mean Corpuscular Volume 90.5 fL (80.0-100.0); Red Blood Cells 3.45 10^6/uL (4.5-5.90); Red Cell Distribution Width 13.7 % (11.8-14.3); White Blood Cell 15.7 10^3/uL (4.4-10.8)
[2022-07-16 04:32] LABS: Basophils % (manual) 0 (0.0-2.0); Blast Cells 0; Promyelocytes % 0; Reactive Lymphocytes 0
[2022-07-16 05:02] LABS: BUN/Creatinine Ratio 77.3 (10.0-20.0); Calcium 8.6 mg/dL (8.5-10.1); Magnesium 3.6 mg/dL (1.6-2.6); Phosphorus 5.3 mg/dL (2.5-4.90); Potassium 4.6 mmol/L (3.5-5.1)
[2022-07-16] MEDS: LEVOTHYROXINE SODIUM 25 MCG TAB PO SCH (05:56)
[2022-07-16] MEDS: INSULIN LANTUS (GLARGINE) 1 /0.01ml (100units/ml) SC SCH ×2 (05:56→22:06)
[2022-07-16] MEDS: BUDESONIDE (INHALATION) 0.5 MG/2 ML NEB NEB SCH (07:01)
[2022-07-16 07:33] LABS: Band Neutrophils % (manual) 2; Eosinophils % (manual) 2 (0-7); Lymphocytes % (manual) 11 (10.0-50.0); Metamyelocytes % 1; Monocytes % (manual) 4 (0-12); Myelocytes % 1
[2022-07-16] MEDS: PROPOFOL 100 ML IV SCH ×2 (09:31→13:26)
[2022-07-16] MEDS: METOPROLOL TARTRATE 25 MG TAB PO SCH ×2 (11:09→22:05)
[2022-07-16] MEDS: PANTOPRAZOLE 40 MG/10 ML VIAL INJ IV SCH (11:09)
[2022-07-16] MEDS: amLODIPine BESYLATE 5 MG TAB PO SCH (11:09)
[2022-07-16] MEDS: MONTELUKAST SODIUM 10 MG TAB PO SCH (11:09)
[2022-07-16] MEDS: AZITHROMYCIN 500MG/ 250ML 250 ML IV SCH (11:09)
[2022-07-16] MEDS: ENOXAPARIN SOD 80 MG/0.8ML SYRINGE SC SCH ×2 (11:10→22:05)
[2022-07-16] MEDS ORDERED: FUROSEMIDE 40 MG/4 ML VIAL IV ONE (15:30)
[2022-07-16] MEDS: VANCOMYCIN 500 MG in D5W 5% 100 ML IV SCH (17:31)
[2022-07-16] MEDS: CEFEPIME 2 GM in SODIUM CHL 0.9% 50 ML IV SCH (20:03)
[2022-07-16] MEDS: AMINO ACID INFUSION IN D10W 1,000 ML IV NR (20:06)
[2022-07-17] VITALS (98 sets, daily range): BP systolic 115–199; BP diastolic 45–120
[2022-07-17] MEDS: IPRATROPIUM BROM 0.5 MG/2.5ML INH SOL NEB SCH ×4 (00:10→18:43)
[2022-07-17] MEDS: BUDESONIDE (INHALATION) 0.5 MG/2 ML NEB NEB SCH ×3 (00:10→21:59)
[2022-07-17] MEDS: ALBUTEROL SULF 2.5 MG/0.5ML(0.5%) NEB SOLN NEB SCH ×4 (00:11→18:42)
[2022-07-17] MEDS: ACCU-CHEK COMFORT CURVE STRIP VI SCH ×6 (00:18→20:00)
[2022-07-17] MEDS: InsuLIN REG 1unit/0.01ml Soln (100units/ml) SC SCH ×6 (00:20→20:00)
[2022-07-17] MEDS: PROPOFOL 100 ML IV SCH ×2 (01:01→03:32)
[2022-07-17 04:30] LABS: Hematocrit 29.7 % (41.0-53.0); Hemoglobin 10.1 g/dL (13.5-17.5); Mean Corpuscular Hemoglobin 30.7 pg (28.0-32.0); Mean Corpuscular Hgb Conc. 33.9 g/dL (32.0-36.0); Mean Corpuscular Volume 90.4 fL (80.0-100.0); Red Blood Cells 3.28 10^6/uL (4.5-5.90); Red Cell Distribution Width 13.7 % (11.8-14.3); White Blood Cell 17.3 10^3/uL (4.4-10.8)
[2022-07-17 04:33] LABS: Basophils % (manual) 0 (0.0-2.0); Blast Cells 0; Eosinophils % (manual) 0 (0-7); Promyelocytes % 0; Reactive Lymphocytes 0
[2022-07-17 04:56] LABS: Potassium 4.6 mmol/L (3.5-5.1)
[2022-07-17 05:02] LABS: Albumin 2.2 g/dL (3.4-5.0); BUN/Creatinine Ratio 79.8 (10.0-20.0); Bilirubin, Total 0.3 mg/dL (0.2-1.0); Calcium 8.2 mg/dL (8.5-10.1); Magnesium 3.3 mg/dL (1.6-2.6); Phosphorus 4.3 mg/dL (2.5-4.90); Total Protein 5.8 g/dL (6.4-8.2)
[2022-07-17 05:35] LABS: Band Neutrophils % (manual) 2; Lymphocytes % (manual) 2 (10.0-50.0); Metamyelocytes % 1; Monocytes % (manual) 8 (0-12); Myelocytes % 1
[2022-07-17] MEDS: LEVOTHYROXINE SODIUM 25 MCG TAB PO SCH (06:17)
[2022-07-17] MEDS: INSULIN LANTUS (GLARGINE) 1 /0.01ml (100units/ml) SC SCH (06:19)
[2022-07-17] MEDS: LABETALOL HCL 5 MG/ML 4ML SYRINGE IV PRN ×3 (08:16→15:05)
[2022-07-17] MEDS: PANTOPRAZOLE 40 MG/10 ML VIAL INJ IV SCH (09:13)
[2022-07-17] MEDS: METOPROLOL TARTRATE 25 MG TAB PO SCH (09:15)
[2022-07-17] MEDS: ENOXAPARIN SOD 80 MG/0.8ML SYRINGE SC SCH (09:17)
[2022-07-17] MEDS: amLODIPine BESYLATE 5 MG TAB PO SCH (09:17)
[2022-07-17] MEDS: AZITHROMYCIN 500MG/ 250ML 250 ML IV SCH (09:17)
[2022-07-17] MEDS: MONTELUKAST SODIUM 10 MG TAB PO SCH (09:17)
[2022-07-17] MEDS: fentaNYL Drip 2500mCg/250mlNS 250 ML IV SCH (12:00)
[2022-07-17] MEDS: VANCOMYCIN 500 MG in D5W 5% 100 ML IV SCH (16:19)
[2022-07-17] MEDS ORDERED: FUROSEMIDE 40 MG/4 ML VIAL IV ONE (16:45)
[2022-07-17] MEDS ORDERED: LACTULOSE 20Gm/30ML SOLN PO PRN (16:45)
[2022-07-17] MEDS: CEFEPIME 2 GM in SODIUM CHL 0.9% 50 ML IV SCH (20:00)
[2022-07-17] MEDS: AMINO ACID INFUSION IN D10W 1,000 ML IV NR (23:00)
[2022-07-18] VITALS (58 sets, daily range): BP systolic 108–209; BP diastolic 43–87
[2022-07-18] MEDS: SENNA 8.6 MG TAB PO SCH
[2022-07-18] MEDS: INSULIN LANTUS (GLARGINE) 1 /0.01ml (100units/ml) SC SCH ×2 (00:02→06:47)
[2022-07-18] MEDS: InsuLIN REG 1unit/0.01ml Soln (100units/ml) SC SCH ×6 (00:03→21:04)
[2022-07-18] MEDS: ACCU-CHEK COMFORT CURVE STRIP VI SCH ×6 (00:03→21:03)
[2022-07-18] MEDS: IPRATROPIUM BROM 0.5 MG/2.5ML INH SOL NEB SCH ×5 (00:17→18:47)
[2022-07-18] MEDS: ALBUTEROL SULF 2.5 MG/0.5ML(0.5%) NEB SOLN NEB SCH ×5 (00:17→18:47)
[2022-07-18] MEDS: BUDESONIDE (INHALATION) 0.5 MG/2 ML NEB NEB SCH ×2 (06:03→18:47)
[2022-07-18] MEDS: LEVOTHYROXINE SODIUM 25 MCG TAB PO SCH (06:47)
[2022-07-18 08:12] LABS: Basophils # (auto) 0 10 ^3/uL (0-0.2); Basophils % (auto) 0.4 % (0.0-2.0); Eosinophils # (auto) 0.2 10 ^3/uL (0-0.8); Eosinophils % (auto) 2.3 % (0.0-7.0); Hematocrit 26.6 % (41.0-53.0); Hemoglobin 9.2 g/dL (13.5-17.5); Lymphocytes # (auto) 0.7 10 ^3/uL (0.4-5.4); Lymphocytes % (auto) 6.3 % (10.0-50.0); Mean Corpuscular Hemoglobin 31.4 pg (28.0-32.0); Mean Corpuscular Hgb Conc. 34.6 g/dL (32.0-36.0); Mean Corpuscular Volume 90.6 fL (80.0-100.0); Monocytes # (auto) 1.3 10 ^3/uL (0-1.3); Monocytes % (auto) 11.9 % (0.0-12.0); Neutrophils # (auto) 8.4 10 ^3/uL (1.6-8.6); Neutrophils % (auto) 79.1 % (37.0-80.0); Nucleated Red Blood Cells % 0.1 %; Red Blood Cells 2.94 10^6/uL (4.5-5.90); Red Cell Distribution Width 13.4 % (11.8-14.3); White Blood Cell 10.7 10^3/uL (4.4-10.8)
[2022-07-18 08:16] LABS: Calcium 7.9 mg/dL (8.5-10.1); Potassium 4.6 mmol/L (3.5-5.1)
[2022-07-18 08:20] LABS: BUN/Creatinine Ratio 72.3 (10.0-20.0); Bilirubin, Total 0.4 mg/dL (0.2-1.0); Total Protein 5.5 g/dL (6.4-8.2)
[2022-07-18] MEDS: LABETALOL HCL 5 MG/ML 4ML SYRINGE IV PRN ×6 (08:50→21:06)
[2022-07-18] MEDS ORDERED: IPRATROPIUM BROM 0.5 MG/2.5ML INH SOL NEB PRN (09:30)
[2022-07-18] MEDS: PANTOPRAZOLE 40 MG/10 ML VIAL INJ IV SCH (09:48)
[2022-07-18] MEDS: ENOXAPARIN SOD 80 MG/0.8ML SYRINGE SC SCH ×2 (09:48)
[2022-07-18] MEDS: DOCUSATE ORAL LIQUID 100 MG/10 ML UD GT SCH ×2 (09:48)
[2022-07-18] MEDS: amLODIPine BESYLATE 5 MG TAB PO SCH (09:49)
[2022-07-18] MEDS: METOPROLOL TARTRATE 25 MG TAB PO SCH ×2 (09:49)
[2022-07-18] MEDS: MONTELUKAST SODIUM 10 MG TAB PO SCH (09:50)
[2022-07-18] MEDS: PROPOFOL 100 ML IV SCH (12:00)
[2022-07-18] MEDS: fentaNYL Drip 2500mCg/250mlNS 250 ML IV SCH (12:00)
[2022-07-18] MEDS: VANCOMYCIN 500 MG in D5W 5% 100 ML IV SCH (17:32)
[2022-07-18] MEDS: cloNIDine 0.3 mg/24hr 7DAY PATCH TD SCH (18:45)
[2022-07-18] MEDS: AMINO ACID INFUSION IN D10W 1,000 ML IV NR (21:01)
[2022-07-18] MEDS: CEFEPIME 2 GM in SODIUM CHL 0.9% 50 ML IV SCH (21:02)
[2022-07-18] MEDS ORDERED: cloNIDine HCL 0.1 MG TAB PO SCH (22:00)
[2022-07-19] VITALS (79 sets, daily range): BP systolic 123–195; BP diastolic 30–82
[2022-07-19] MEDS: DOCUSATE ORAL LIQUID 100 MG/10 ML UD GT SCH ×3 (00:05→22:00)
[2022-07-19] MEDS: METOPROLOL TARTRATE 25 MG TAB PO SCH (00:06)
[2022-07-19] MEDS: SENNA 8.6 MG TAB PO SCH ×2 (00:06→22:00)
[2022-07-19] MEDS: INSULIN LANTUS (GLARGINE) 1 /0.01ml (100units/ml) SC SCH ×3 (00:07→22:22)
[2022-07-19] MEDS: InsuLIN REG 1unit/0.01ml Soln (100units/ml) SC SCH ×6 (00:08→20:51)
[2022-07-19] MEDS: ACCU-CHEK COMFORT CURVE STRIP VI SCH ×6 (00:08→20:44)
[2022-07-19] MEDS: ALBUTEROL SULF 2.5 MG/0.5ML(0.5%) NEB SOLN NEB SCH ×4 (00:24→19:17)
[2022-07-19] MEDS: IPRATROPIUM BROM 0.5 MG/2.5ML INH SOL NEB SCH ×4 (00:24→19:17)
[2022-07-19] MEDS: hydrALAZINE HCL 20 MG/ML VL IV PRN ×3 (01:25→21:12)
[2022-07-19] MEDS: LEVOTHYROXINE SODIUM 25 MCG TAB PO SCH (06:46)
[2022-07-19] MEDS: BUDESONIDE (INHALATION) 0.5 MG/2 ML NEB NEB SCH ×2 (06:47→19:17)
[2022-07-19 07:09] LABS: Albumin 2.1 g/dL (3.4-5.0); Calcium 8.3 mg/dL (8.5-10.1); Magnesium 2.7 mg/dL (1.6-2.6); Potassium 4.2 mmol/L (3.5-5.1)
[2022-07-19 07:19] LABS: BUN/Creatinine Ratio 67.6 (10.0-20.0); Bilirubin, Total 0.4 mg/dL (0.2-1.0); Phosphorus 2.4 mg/dL (2.5-4.90); Total Protein 5.8 g/dL (6.4-8.2)
[2022-07-19] MEDS: LABETALOL HCL 5 MG/ML 4ML SYRINGE IV PRN ×5 (08:15→23:44)
[2022-07-19] MEDS: amLODIPine BESYLATE 5 MG TAB PO SCH (09:44)
[2022-07-19] MEDS: PANTOPRAZOLE 40 MG/10 ML VIAL INJ IV SCH (09:44)
[2022-07-19] MEDS: ENOXAPARIN SOD 40 MG/0.4 ML SYRINGE SC SCH (09:44)
[2022-07-19] MEDS: MONTELUKAST SODIUM 10 MG TAB PO SCH (09:44)
[2022-07-19] MEDS: METOPROLOL TARTRATE 50 MG TAB PO SCH ×2 (10:29→22:00)
[2022-07-19] MEDS: ACETAMINOPHEN 325 MG TAB PO PRN (10:30)
[2022-07-19] MEDS: fentaNYL Drip 2500mCg/250mlNS 250 ML IV SCH (12:00)
[2022-07-19] MEDS ORDERED: diphenhdrAMINE HCL 50 MG/1 ML VL IV ONE (17:00)
[2022-07-19] MEDS: VANCOMYCIN 500 MG in D5W 5% 100 ML IV SCH (17:20)
[2022-07-19] MEDS: AMINO ACID INFUSION IN D10W 1,000 ML IV NR (20:30)
[2022-07-19] MEDS: CEFEPIME 2 GM in SODIUM CHL 0.9% 50 ML IV SCH (20:39)
[2022-07-19] MEDS: FAMOTIDINE (10MG/ML) 2ML VL IV SCH (22:15)
[2022-07-20] VITALS (95 sets, daily range): BP systolic 124–203; BP diastolic 28–85
[2022-07-20] MEDS: ACCU-CHEK COMFORT CURVE STRIP VI SCH ×7 (00:04→23:36)
[2022-07-20] MEDS: InsuLIN REG 1unit/0.01ml Soln (100units/ml) SC SCH ×7 (00:07→23:41)
[2022-07-20] MEDS: IPRATROPIUM BROM 0.5 MG/2.5ML INH SOL NEB SCH ×3 (00:54→20:06)
[2022-07-20] MEDS: ALBUTEROL SULF 2.5 MG/0.5ML(0.5%) NEB SOLN NEB SCH ×4 (00:54→20:05)
[2022-07-20 04:11] LABS: Albumin 2.4 g/dL (3.4-5.0); Calcium 8.6 mg/dL (8.5-10.1); Potassium 3.9 mmol/L (3.5-5.1)
[2022-07-20 04:16] LABS: Bilirubin, Total 0.5 mg/dL (0.2-1.0); Magnesium 2.5 mg/dL (1.6-2.6); Phosphorus 2.8 mg/dL (2.5-4.90); Total Protein 6.1 g/dL (6.4-8.2)
[2022-07-20] MEDS: LABETALOL HCL 5 MG/ML 4ML SYRINGE IV PRN ×7 (05:57→22:51)
[2022-07-20] MEDS: BUDESONIDE (INHALATION) 0.5 MG/2 ML NEB NEB SCH ×2 (06:20→20:06)
[2022-07-20] MEDS: INSULIN LANTUS (GLARGINE) 1 /0.01ml (100units/ml) SC SCH ×2 (06:39→21:25)
[2022-07-20] MEDS: FAMOTIDINE (10MG/ML) 2ML VL IV SCH ×2 (11:13→21:22)
[2022-07-20] MEDS: MONTELUKAST SODIUM 10 MG TAB PO SCH (11:14)
[2022-07-20] MEDS: ENOXAPARIN SOD 40 MG/0.4 ML SYRINGE SC SCH (11:14)
[2022-07-20] MEDS: amLODIPine BESYLATE 5 MG TAB PO SCH (11:14)
[2022-07-20] MEDS: DOCUSATE ORAL LIQUID 100 MG/10 ML UD GT SCH ×2 (11:15→21:22)
[2022-07-20] MEDS: LEVOTHYROXINE SODIUM 25 MCG TAB PO SCH (11:15)
[2022-07-20] MEDS: METOPROLOL TARTRATE 50 MG TAB PO SCH ×2 (11:16→21:23)
[2022-07-20] MEDS: fentaNYL Drip 2500mCg/250mlNS 250 ML IV SCH (12:00)
[2022-07-20] MEDS: MORPHINE SULFATE INJ 2 MG/ml SYRG IV PRN (13:26)
[2022-07-20] MEDS: diphenhdrAMINE HCL 50 MG/1 ML VL IV PRN (15:26)
[2022-07-20] MEDS: METOPROLOL TARTRATE 1MG/1ML-5ML VIAL IV PRN (15:54)
[2022-07-20] MEDS: VANCOMYCIN 500 MG in D5W 5% 100 ML IV SCH (16:30)
[2022-07-20] MEDS: CEFEPIME 2 GM in SODIUM CHL 0.9% 50 ML IV SCH (19:50)
[2022-07-20] MEDS: AMINO ACID INFUSION IN D10W 1,000 ML IV NR (19:51)
[2022-07-20] MEDS: SENNA 8.6 MG TAB PO SCH (21:23)
[2022-07-21] VITALS (60 sets, daily range): BP systolic 155–193; BP diastolic 27–86
[2022-07-21] MEDS: ALBUTEROL SULF 2.5 MG/0.5ML(0.5%) NEB SOLN NEB SCH ×4 (00:11→18:34)
[2022-07-21] MEDS: IPRATROPIUM BROM 0.5 MG/2.5ML INH SOL NEB SCH ×4 (00:11→18:34)
[2022-07-21] MEDS: LABETALOL HCL 5 MG/ML 4ML SYRINGE IV PRN ×4 (02:21→13:24)
[2022-07-21] MEDS: ACCU-CHEK COMFORT CURVE STRIP VI SCH ×6 (03:30→23:51)
[2022-07-21] MEDS: InsuLIN REG 1unit/0.01ml Soln (100units/ml) SC SCH ×6 (03:33→23:53)
[2022-07-21 03:56] LABS: Albumin 2.2 g/dL (3.4-5.0); Calcium 8.6 mg/dL (8.5-10.1); Magnesium 2.3 mg/dL (1.6-2.6)
[2022-07-21 04:02] LABS: BUN/Creatinine Ratio 58.3 (10.0-20.0); Bilirubin, Total 0.5 mg/dL (0.2-1.0); Phosphorus 2.5 mg/dL (2.5-4.90); Total Protein 5.6 g/dL (6.4-8.2)
[2022-07-21] MEDS: LEVOTHYROXINE SODIUM 25 MCG TAB PO SCH (05:59)
[2022-07-21] MEDS: INSULIN LANTUS (GLARGINE) 1 /0.01ml (100units/ml) SC SCH ×2 (05:59→21:16)
[2022-07-21] MEDS: BUDESONIDE (INHALATION) 0.5 MG/2 ML NEB NEB SCH ×2 (07:00→18:34)
[2022-07-21] MEDS: CEFEPIME 2 GM in SODIUM CHL 0.9% 50 ML IV SCH ×2 (07:53→20:51)
[2022-07-21] MEDS: MORPHINE SULFATE INJ 2 MG/ml SYRG IV PRN (08:04)
[2022-07-21] MEDS: DOCUSATE ORAL LIQUID 100 MG/10 ML UD GT SCH ×2 (10:00→21:03)
[2022-07-21] MEDS: FAMOTIDINE (10MG/ML) 2ML VL IV SCH ×2 (10:10→21:03)
[2022-07-21] MEDS: ENOXAPARIN SOD 40 MG/0.4 ML SYRINGE SC SCH (10:10)
[2022-07-21] MEDS: fentaNYL Drip 2500mCg/250mlNS 250 ML IV SCH (12:00)
[2022-07-21] MEDS: MONTELUKAST SODIUM 10 MG TAB PO SCH (12:14)
[2022-07-21] MEDS: METOPROLOL TARTRATE 50 MG TAB PO SCH ×2 (12:15→21:03)
[2022-07-21] MEDS: amLODIPine BESYLATE 5 MG TAB PO SCH (12:15)
[2022-07-21] MEDS: hydrALAZINE HCL 20 MG/ML VL IV PRN ×2 (14:33→23:45)
[2022-07-21] MEDS: diphenhdrAMINE HCL 50 MG/1 ML VL IV PRN (14:55)
[2022-07-21] MEDS: VANCOMYCIN 500 MG in D5W 5% 100 ML IV SCH (17:02)
[2022-07-21] MEDS: AMINO ACID INFUSION IN D10W 1,000 ML IV NR (20:50)
[2022-07-21] MEDS: SENNA 8.6 MG TAB PO SCH (21:04)
[2022-07-22] VITALS (7 sets, daily range): BP systolic 129–161; BP diastolic 57–74
[2022-07-22] MEDS: IPRATROPIUM BROM 0.5 MG/2.5ML INH SOL NEB SCH ×5 (00:17→23:49)
[2022-07-22] MEDS: ALBUTEROL SULF 2.5 MG/0.5ML(0.5%) NEB SOLN NEB SCH ×5 (00:17→23:49)
[2022-07-22] MEDS: LABETALOL HCL 5 MG/ML 4ML SYRINGE IV PRN (02:06)
[2022-07-22] MEDS: InsuLIN REG 1unit/0.01ml Soln (100units/ml) SC SCH ×5 (04:00→20:00)
[2022-07-22] MEDS: ACCU-CHEK COMFORT CURVE STRIP VI SCH ×5 (04:12→22:03)
[2022-07-22] MEDS: LEVOTHYROXINE SODIUM 25 MCG TAB PO SCH (06:05)
[2022-07-22 06:07] LABS: Potassium 4.4 mmol/L (3.5-5.1)
[2022-07-22 06:11] LABS: Albumin 2.1 g/dL (3.4-5.0); BUN/Creatinine Ratio 49.3 (10.0-20.0); Calcium 8.8 mg/dL (8.5-10.1); Magnesium 2.3 mg/dL (1.6-2.6)
[2022-07-22] MEDS: INSULIN LANTUS (GLARGINE) 1 /0.01ml (100units/ml) SC SCH ×2 (06:15→22:00)
[2022-07-22 06:28] LABS: Bilirubin, Total 0.5 mg/dL (0.2-1.0); Phosphorus 2.3 mg/dL (2.5-4.90); Total Protein 5.9 g/dL (6.4-8.2)
[2022-07-22] MEDS: ENOXAPARIN SOD 40 MG/0.4 ML SYRINGE SC SCH (09:09)
[2022-07-22] MEDS: amLODIPine BESYLATE 5 MG TAB PO SCH (09:10)
[2022-07-22] MEDS: MONTELUKAST SODIUM 10 MG TAB PO SCH (09:10)
[2022-07-22] MEDS: DOCUSATE ORAL LIQUID 100 MG/10 ML UD GT SCH ×2 (09:10→21:57)
[2022-07-22] MEDS: FAMOTIDINE (10MG/ML) 2ML VL IV SCH ×2 (09:11→21:56)
[2022-07-22] MEDS: METOPROLOL TARTRATE 50 MG TAB PO SCH ×2 (09:11→21:55)
[2022-07-22] MEDS: BUDESONIDE (INHALATION) 0.5 MG/2 ML NEB NEB SCH ×2 (11:38→17:53)
[2022-07-22] MEDS: D5W 5% 1,000 ML IV SCH (14:41)
[2022-07-22] MEDS ORDERED: VANCOMYCIN 750mg/250ml 250 ML IV SCH (15:00)
[2022-07-22] MEDS ORDERED: AMINO ACID INFUSION IN D10W 1,000 ML IV NR (20:00)
[2022-07-22] MEDS: SENNA 8.6 MG TAB PO SCH (21:57)
[2022-07-22] MEDS: METOPROLOL TARTRATE 1MG/1ML-5ML VIAL IV PRN ×2 (22:23→22:50)
[2022-07-23] MEDS: ACCU-CHEK COMFORT CURVE STRIP VI SCH ×6 (00:15→21:04)
[2022-07-23] MEDS: D5W 5% 1,000 ML IV SCH ×2 (02:05→10:54)
[2022-07-23] MEDS: InsuLIN REG 1unit/0.01ml Soln (100units/ml) SC SCH ×6 (04:00→21:28)
[2022-07-23] MEDS: LABETALOL HCL 5 MG/ML 4ML SYRINGE IV PRN ×2 (04:36→08:58)
[2022-07-23 05:00] VITALS: BP 169/61
[2022-07-23] MEDS: INSULIN LANTUS (GLARGINE) 1 /0.01ml (100units/ml) SC SCH ×2 (05:56→21:42)
[2022-07-23] MEDS: LEVOTHYROXINE SODIUM 25 MCG TAB PO SCH (06:14)
[2022-07-23 06:15] LABS: Basophils # (auto) 0.1 10 ^3/uL (0-0.2); Basophils % (auto) 0.5 % (0.0-2.0); Eosinophils # (auto) 0.8 10 ^3/uL (0-0.8); Eosinophils % (auto) 3.7 % (0.0-7.0); Hematocrit 30.2 % (41.0-53.0); Hemoglobin 10.2 g/dL (13.5-17.5); Lymphocytes % (auto) 4.7 % (10.0-50.0); Mean Corpuscular Hgb Conc. 33.9 g/dL (32.0-36.0); Mean Corpuscular Volume 91.4 fL (80.0-100.0); Monocytes # (auto) 1.2 10 ^3/uL (0-1.3); Monocytes % (auto) 5.8 % (0.0-12.0); Neutrophils # (auto) 17.4 10 ^3/uL (1.6-8.6); Neutrophils % (auto) 85.3 % (37.0-80.0); Nucleated Red Blood Cells % 0.1 %; Red Blood Cells 3.31 10^6/uL (4.5-5.90); Red Cell Distribution Width 14.2 % (11.8-14.3); White Blood Cell 20.4 10^3/uL (4.4-10.8)
[2022-07-23] MEDS: BUDESONIDE (INHALATION) 0.5 MG/2 ML NEB NEB SCH (06:18)
[2022-07-23] MEDS: ALBUTEROL SULF 2.5 MG/0.5ML(0.5%) NEB SOLN NEB SCH ×3 (06:18→18:53)
[2022-07-23] MEDS: IPRATROPIUM BROM 0.5 MG/2.5ML INH SOL NEB SCH ×3 (06:18→18:53)
[2022-07-23 06:24] LABS: Potassium 4.2 mmol/L (3.5-5.1)
[2022-07-23 06:29] LABS: BUN/Creatinine Ratio 42.1 (10.0-20.0); Calcium 8.5 mg/dL (8.5-10.1)
[2022-07-23] MEDS: METOPROLOL TARTRATE 50 MG TAB PO SCH ×2 (08:49→21:27)
[2022-07-23] MEDS: ENOXAPARIN SOD 40 MG/0.4 ML SYRINGE SC SCH (08:50)
[2022-07-23] MEDS: FAMOTIDINE (10MG/ML) 2ML VL IV SCH ×2 (08:50→21:26)
[2022-07-23] MEDS: amLODIPine BESYLATE 5 MG TAB PO SCH (08:50)
[2022-07-23] MEDS: MONTELUKAST SODIUM 10 MG TAB PO SCH (08:50)
[2022-07-23] MEDS: DOCUSATE ORAL LIQUID 100 MG/10 ML UD GT SCH ×2 (08:51→21:27)
[2022-07-23 09:00] VITALS: BP 167/67
[2022-07-23 13:00] VITALS: BP 130/62
[2022-07-23] MEDS ORDERED: cefTRIAXone 1GM/50ML D5W 50 ML IV ONE (13:45)
[2022-07-23 17:00] VITALS: BP 151/78
[2022-07-23] MEDS: hydrALAZINE HCL 20 MG/ML VL IV PRN (18:07)
[2022-07-23] MEDS: SENNA 8.6 MG TAB PO SCH (21:26)
[2022-07-23] MEDS: MORPHINE SULFATE INJ 2 MG/ml SYRG IV PRN (21:35)
[2022-07-23 22:00] VITALS: BP 116/52
[2022-07-23] MEDS: LORazepam 2MG/ML-1ML VIAL IV PRN (22:52)
[2022-07-24] MEDS: BUDESONIDE (INHALATION) 0.5 MG/2 ML NEB NEB SCH ×2 (00:37→07:04)
[2022-07-24] MEDS: IPRATROPIUM BROM 0.5 MG/2.5ML INH SOL NEB SCH ×4 (00:37→19:12)
[2022-07-24] MEDS: ALBUTEROL SULF 2.5 MG/0.5ML(0.5%) NEB SOLN NEB SCH ×4 (00:37→19:12)
[2022-07-24] MEDS: ACCU-CHEK COMFORT CURVE STRIP VI SCH ×7 (00:59→22:36)
[2022-07-24] MEDS: InsuLIN REG 1unit/0.01ml Soln (100units/ml) SC SCH ×5 (01:01→16:00)
[2022-07-24 01:30] VITALS: BP 139/59
[2022-07-24] MEDS: D5W 5% 1,000 ML IV SCH ×2 (01:49→18:15)
[2022-07-24 05:00] VITALS: BP 147/62
[2022-07-24 05:44] LABS: Basophils # (auto) 0 10 ^3/uL (0-0.2); Basophils % (auto) 0.5 % (0.0-2.0); Eosinophils # (auto) 1.1 10 ^3/uL (0-0.8); Eosinophils % (auto) 11.2 % (0.0-7.0); Hematocrit 25.9 % (41.0-53.0); Hemoglobin 8.9 g/dL (13.5-17.5); Lymphocytes # (auto) 1.4 10 ^3/uL (0.4-5.4); Lymphocytes % (auto) 13.9 % (10.0-50.0); Mean Corpuscular Hemoglobin 31.4 pg (28.0-32.0); Mean Corpuscular Hgb Conc. 34.4 g/dL (32.0-36.0); Mean Corpuscular Volume 91.4 fL (80.0-100.0); Monocytes # (auto) 0.7 10 ^3/uL (0-1.3); Neutrophils # (auto) 6.6 10 ^3/uL (1.6-8.6); Neutrophils % (auto) 67.4 % (37.0-80.0); Nucleated Red Blood Cells % 0.1 %; Red Blood Cells 2.84 10^6/uL (4.5-5.90); Red Cell Distribution Width 14.4 % (11.8-14.3); White Blood Cell 9.8 10^3/uL (4.4-10.8)
[2022-07-24 06:01] LABS: Potassium 3.8 mmol/L (3.5-5.1)
[2022-07-24 06:06] LABS: BUN/Creatinine Ratio 40.8 (10.0-20.0); Calcium 8.2 mg/dL (8.5-10.1)
[2022-07-24] MEDS: LEVOTHYROXINE SODIUM 25 MCG TAB PO SCH (06:33)
[2022-07-24] MEDS: INSULIN LANTUS (GLARGINE) 1 /0.01ml (100units/ml) SC SCH ×2 (06:42→22:28)
[2022-07-24 09:00] VITALS: BP 147/60
[2022-07-24] MEDS: METOPROLOL TARTRATE 50 MG TAB PO SCH ×2 (10:32→22:25)
[2022-07-24] MEDS: amLODIPine BESYLATE 5 MG TAB PO SCH (10:32)
[2022-07-24] MEDS: FAMOTIDINE (10MG/ML) 2ML VL IV SCH (10:33)
[2022-07-24] MEDS: ENOXAPARIN SOD 40 MG/0.4 ML SYRINGE SC SCH (10:33)
[2022-07-24] MEDS: DOCUSATE ORAL LIQUID 100 MG/10 ML UD GT SCH ×2 (10:33→22:26)
[2022-07-24] MEDS: cefTRIAXone 1GM/50ML D5W 50 ML IV SCH (10:34)
[2022-07-24] MEDS: MONTELUKAST SODIUM 10 MG TAB PO SCH (10:38)
[2022-07-24 13:00] VITALS: BP 153/64
[2022-07-24 17:01] VITALS: BP 155/70
[2022-07-24] MEDS: SENNA 8.6 MG TAB PO SCH (22:26)
[2022-07-24] MEDS: MORPHINE SULFATE INJ 2 MG/ml SYRG IV PRN (22:44)
[2022-07-25] MEDS: ALBUTEROL SULF 2.5 MG/0.5ML(0.5%) NEB SOLN NEB SCH ×5 (00:35→23:57)
[2022-07-25] MEDS: IPRATROPIUM BROM 0.5 MG/2.5ML INH SOL NEB SCH ×5 (00:35→23:57)
[2022-07-25] MEDS: D5W 5% 1,000 ML IV SCH (04:06)
[2022-07-25 05:00] VITALS: BP 162/56
[2022-07-25] MEDS: ACCU-CHEK COMFORT CURVE STRIP VI SCH ×6 (06:05→22:13)
[2022-07-25] MEDS: LEVOTHYROXINE SODIUM 25 MCG TAB PO SCH (06:05)
[2022-07-25] MEDS: INSULIN LANTUS (GLARGINE) 1 /0.01ml (100units/ml) SC SCH ×2 (06:07→22:13)
[2022-07-25 09:00] VITALS: BP 146/66
[2022-07-25] MEDS: cefTRIAXone 1GM/50ML D5W 50 ML IV SCH (09:13)
[2022-07-25] MEDS: DOCUSATE ORAL LIQUID 100 MG/10 ML UD GT SCH ×2 (09:13→22:02)
[2022-07-25] MEDS: ENOXAPARIN SOD 40 MG/0.4 ML SYRINGE SC SCH (09:14)
[2022-07-25] MEDS: amLODIPine BESYLATE 5 MG TAB PO SCH (09:14)
[2022-07-25] MEDS: MONTELUKAST SODIUM 10 MG TAB PO SCH (09:15)
[2022-07-25] MEDS: METOPROLOL TARTRATE 50 MG TAB PO SCH ×2 (09:15→22:01)
[2022-07-25 13:00] VITALS: BP 141/72
[2022-07-25 17:00] VITALS: BP 152/63
[2022-07-25] MEDS: cloNIDine 0.3 mg/24hr 7DAY PATCH TD SCH (18:26)
[2022-07-25 20:28] VITALS: BP 152/63
[2022-07-25 22:00] VITALS: BP 151/63
[2022-07-25] MEDS: SENNA 8.6 MG TAB PO SCH (22:01)
[2022-07-25] MEDS: MORPHINE SULFATE INJ 2 MG/ml SYRG IV PRN (22:02)
[2022-07-26 05:00] VITALS: BP 166/79
[2022-07-26 05:45] LABS: Albumin 2.3 g/dL (3.4-5.0); Calcium 7.9 mg/dL (8.5-10.1); Potassium 4.1 mmol/L (3.5-5.1)
[2022-07-26 05:51] LABS: BUN/Creatinine Ratio 29.5 (10.0-20.0); Bilirubin, Total 0.4 mg/dL (0.2-1.0); Total Protein 5.2 g/dL (6.4-8.2)
[2022-07-26] MEDS: LEVOTHYROXINE SODIUM 25 MCG TAB PO SCH (06:30)
[2022-07-26] MEDS: INSULIN LANTUS (GLARGINE) 1 /0.01ml (100units/ml) SC SCH ×2 (06:31→22:00)
[2022-07-26] MEDS: ACCU-CHEK COMFORT CURVE STRIP VI SCH ×5 (06:31→20:45)
[2022-07-26] MEDS: ALBUTEROL SULF 2.5 MG/0.5ML(0.5%) NEB SOLN NEB SCH ×4 (06:42→23:05)
[2022-07-26] MEDS: IPRATROPIUM BROM 0.5 MG/2.5ML INH SOL NEB SCH ×4 (06:42→23:05)
[2022-07-26 07:17] VITALS: BP 149/64
[2022-07-26 09:05] VITALS: BP 142/70
[2022-07-26 09:19] LABS: Basophils # (auto) 0.1 10 ^3/uL (0-0.2); Basophils % (auto) 0.9 % (0.0-2.0); Eosinophils % (auto) 10.4 % (0.0-7.0); Hematocrit 25.1 % (41.0-53.0); Hemoglobin 8.7 g/dL (13.5-17.5); Lymphocytes # (auto) 1.4 10 ^3/uL (0.4-5.4); Lymphocytes % (auto) 13.9 % (10.0-50.0); Mean Corpuscular Hemoglobin 31.2 pg (28.0-32.0); Mean Corpuscular Hgb Conc. 34.5 g/dL (32.0-36.0); Mean Corpuscular Volume 90.4 fL (80.0-100.0); Monocytes % (auto) 10.2 % (0.0-12.0); Neutrophils # (auto) 6.3 10 ^3/uL (1.6-8.6); Neutrophils % (auto) 64.6 % (37.0-80.0); Nucleated Red Blood Cells % 0.1 %; Red Blood Cells 2.78 10^6/uL (4.5-5.90); White Blood Cell 9.7 10^3/uL (4.4-10.8)
[2022-07-26] MEDS: amLODIPine BESYLATE 5 MG TAB PO SCH (10:00)
[2022-07-26] MEDS: METOPROLOL TARTRATE 50 MG TAB PO SCH ×2 (10:00→21:05)
[2022-07-26] MEDS: DOCUSATE ORAL LIQUID 100 MG/10 ML UD GT SCH ×2 (10:00→21:05)
[2022-07-26] MEDS: MONTELUKAST SODIUM 10 MG TAB PO SCH (10:00)
[2022-07-26] MEDS: cefTRIAXone 1GM/50ML D5W 50 ML IV SCH (10:19)
[2022-07-26] MEDS: ENOXAPARIN SOD 40 MG/0.4 ML SYRINGE SC SCH (10:19)
[2022-07-26 13:00] VITALS: BP 158/67
[2022-07-26 17:00] VITALS: BP 178/77
[2022-07-26] MEDS: SENNA 8.6 MG TAB PO SCH (21:05)
[2022-07-26 21:30] VITALS: BP 174/71
[2022-07-27] MEDS: hydrALAZINE HCL 20 MG/ML VL IV PRN (04:19)
[2022-07-27 04:41] VITALS: BP 162/64
[2022-07-27] MEDS: LEVOTHYROXINE SODIUM 25 MCG TAB PO SCH (06:16)
[2022-07-27] MEDS: ALBUTEROL SULF 2.5 MG/0.5ML(0.5%) NEB SOLN NEB SCH ×3 (06:42→18:21)
[2022-07-27] MEDS: IPRATROPIUM BROM 0.5 MG/2.5ML INH SOL NEB SCH ×3 (06:43→18:20)
[2022-07-27] MEDS: ACCU-CHEK COMFORT CURVE STRIP VI SCH ×6 (06:49→20:00)
[2022-07-27] MEDS: INSULIN LANTUS (GLARGINE) 1 /0.01ml (100units/ml) SC SCH ×2 (06:50→22:10)
[2022-07-27 09:00] VITALS: BP 99/66
[2022-07-27] MEDS: amLODIPine BESYLATE 5 MG TAB PO SCH (10:00)
[2022-07-27] MEDS: METOPROLOL TARTRATE 50 MG TAB PO SCH ×2 (10:00→22:03)
[2022-07-27] MEDS: ENOXAPARIN SOD 40 MG/0.4 ML SYRINGE SC SCH (10:18)
[2022-07-27] MEDS: cefTRIAXone 1GM/50ML D5W 50 ML IV SCH (10:18)
[2022-07-27] MEDS: DOCUSATE ORAL LIQUID 100 MG/10 ML UD GT SCH ×2 (10:18→22:03)
[2022-07-27] MEDS: MONTELUKAST SODIUM 10 MG TAB PO SCH (10:18)
[2022-07-27 13:00] VITALS: BP 118/67
[2022-07-27] MEDS ORDERED: BISACODYL 10 MG RECT SUPP PR ONE (16:30)
[2022-07-27 16:54] VITALS: BP 166/74
[2022-07-27 22:00] VITALS: BP 143/90
[2022-07-27] MEDS: SENNA 8.6 MG TAB PO SCH (22:04)
[2022-07-28] MEDS: ACCU-CHEK COMFORT CURVE STRIP VI SCH ×6 (00:18→20:27)
[2022-07-28] MEDS: IPRATROPIUM BROM 0.5 MG/2.5ML INH SOL NEB SCH ×4 (00:20→18:22)
[2022-07-28] MEDS: ALBUTEROL SULF 2.5 MG/0.5ML(0.5%) NEB SOLN NEB SCH ×4 (00:20→18:22)
[2022-07-28 05:00] VITALS: BP 102/75
[2022-07-28 06:10] LABS: Potassium 3.8 mmol/L (3.5-5.1)
[2022-07-28 06:19] LABS: Albumin 2.2 g/dL (3.4-5.0); BUN/Creatinine Ratio 23.4 (10.0-20.0)
[2022-07-28 06:22] LABS: Basophils % (auto) 0.4 % (0.0-2.0); Eosinophils # (auto) 0.5 10 ^3/uL (0-0.8)
[2022-07-28 06:23] LABS: Bilirubin, Total 0.5 mg/dL (0.2-1.0); Total Protein 5.3 g/dL (6.4-8.2)
[2022-07-28] MEDS: LEVOTHYROXINE SODIUM 25 MCG TAB PO SCH (06:23)
[2022-07-28] MEDS: INSULIN LANTUS (GLARGINE) 1 /0.01ml (100units/ml) SC SCH ×2 (06:23→22:10)
[2022-07-28 06:26] LABS: Basophils # (auto) 0 10 ^3/uL (0-0.2); Eosinophils % (auto) 4.2 % (0.0-7.0); Hematocrit 23.9 % (41.0-53.0); Hemoglobin 8.1 g/dL (13.5-17.5); Lymphocytes % (auto) 7.8 % (10.0-50.0); Mean Corpuscular Hemoglobin 30.8 pg (28.0-32.0); Mean Corpuscular Hgb Conc. 33.8 g/dL (32.0-36.0); Monocytes % (auto) 7.7 % (0.0-12.0); Neutrophils # (auto) 10.3 10 ^3/uL (1.6-8.6); Neutrophils % (auto) 79.9 % (37.0-80.0); Red Blood Cells 2.63 10^6/uL (4.5-5.90); Red Cell Distribution Width 14.7 % (11.8-14.3); White Blood Cell 12.8 10^3/uL (4.4-10.8)
[2022-07-28 09:00] VITALS: BP 166/74
[2022-07-28] MEDS: DOCUSATE ORAL LIQUID 100 MG/10 ML UD GT SCH ×2 (10:00→21:53)
[2022-07-28] MEDS: cefTRIAXone 1GM/50ML D5W 50 ML IV SCH (10:32)
[2022-07-28] MEDS: MONTELUKAST SODIUM 10 MG TAB PO SCH (10:39)
[2022-07-28] MEDS: METOPROLOL TARTRATE 50 MG TAB PO SCH ×2 (10:41→21:55)
[2022-07-28] MEDS: ENOXAPARIN SOD 40 MG/0.4 ML SYRINGE SC SCH (10:42)
[2022-07-28] MEDS: amLODIPine BESYLATE 5 MG TAB PO SCH (10:42)
[2022-07-28 13:00] VITALS: BP 125/46
[2022-07-28 17:00] VITALS: BP 166/77
[2022-07-28] MEDS: SENNA 8.6 MG TAB PO SCH (21:53)
[2022-07-28 22:00] VITALS: BP 167/80
[2022-07-29] VITALS (7 sets, daily range): BP systolic 109–185; BP diastolic 57–96
[2022-07-29] MEDS: IPRATROPIUM BROM 0.5 MG/2.5ML INH SOL NEB SCH ×4 (00:18→17:52)
[2022-07-29] MEDS: ALBUTEROL SULF 2.5 MG/0.5ML(0.5%) NEB SOLN NEB SCH ×4 (00:18→17:52)
[2022-07-29] MEDS: ACCU-CHEK COMFORT CURVE STRIP VI SCH ×6 (00:49→22:00)
[2022-07-29] MEDS: LABETALOL HCL 5 MG/ML 4ML SYRINGE IV PRN ×2 (05:34→18:12)
[2022-07-29] MEDS: INSULIN LANTUS (GLARGINE) 1 /0.01ml (100units/ml) SC SCH ×2 (06:18→22:44)
[2022-07-29] MEDS: LEVOTHYROXINE SODIUM 25 MCG TAB PO SCH (06:19)
[2022-07-29] MEDS: ENOXAPARIN SOD 40 MG/0.4 ML SYRINGE SC SCH (09:29)
[2022-07-29] MEDS: MONTELUKAST SODIUM 10 MG TAB PO SCH (09:30)
[2022-07-29] MEDS: amLODIPine BESYLATE 5 MG TAB PO SCH (09:35)
[2022-07-29] MEDS: DOCUSATE ORAL LIQUID 100 MG/10 ML UD GT SCH ×2 (09:35→23:08)
[2022-07-29] MEDS: METOPROLOL TARTRATE 50 MG TAB PO SCH ×2 (09:35→23:09)
[2022-07-29] MEDS: ERTAPENEM SOD INJ 1 GM in SODIUM CHL 0.9% 50 ML IV SCH (13:53)
[2022-07-29] MEDS ORDERED: FUROSEMIDE 20 MG/2 ML VIAL IV ONE (17:45)
[2022-07-29] MEDS: MORPHINE SULFATE INJ 2 MG/ml SYRG IV PRN (23:08)
[2022-07-29] MEDS: SENNA 8.6 MG TAB PO SCH (23:09)
[2022-07-30] MEDS: ALBUTEROL SULF 2.5 MG/0.5ML(0.5%) NEB SOLN NEB SCH ×4 (00:12→19:29)
[2022-07-30] MEDS: IPRATROPIUM BROM 0.5 MG/2.5ML INH SOL NEB SCH ×4 (00:12→19:29)
[2022-07-30] MEDS: ACCU-CHEK COMFORT CURVE STRIP VI SCH ×6 (00:28→20:00)
[2022-07-30 05:00] VITALS: BP 145/72
[2022-07-30] MEDS: LEVOTHYROXINE SODIUM 25 MCG TAB PO SCH (06:18)
[2022-07-30] MEDS: INSULIN LANTUS (GLARGINE) 1 /0.01ml (100units/ml) SC SCH ×2 (06:19→21:22)
[2022-07-30 09:00] VITALS: BP 137/80
[2022-07-30] MEDS: ERTAPENEM SOD INJ 1 GM in SODIUM CHL 0.9% 50 ML IV SCH (09:27)
[2022-07-30] MEDS: MONTELUKAST SODIUM 10 MG TAB PO SCH (09:33)
[2022-07-30] MEDS: ENOXAPARIN SOD 40 MG/0.4 ML SYRINGE SC SCH (09:34)
[2022-07-30] MEDS: amLODIPine BESYLATE 5 MG TAB PO SCH (09:34)
[2022-07-30] MEDS: METOPROLOL TARTRATE 50 MG TAB PO SCH ×2 (09:35→21:15)
[2022-07-30] MEDS: DOCUSATE ORAL LIQUID 100 MG/10 ML UD GT SCH ×2 (10:00→21:14)
[2022-07-30] MEDS ORDERED: FUROSEMIDE 20 MG/2 ML VIAL IV ONE (11:00)
[2022-07-30 13:00] VITALS: BP 159/78
[2022-07-30 17:00] VITALS: BP 115/73
[2022-07-30] MEDS: SENNA 8.6 MG TAB PO SCH (21:15)
[2022-07-30 21:52] VITALS: BP 132/55
[2022-07-30] MEDS: MORPHINE SULFATE INJ 2 MG/ml SYRG IV PRN (23:26)
[2022-07-31] MEDS: IPRATROPIUM BROM 0.5 MG/2.5ML INH SOL NEB SCH ×5 (00:29→23:58)
[2022-07-31] MEDS: ALBUTEROL SULF 2.5 MG/0.5ML(0.5%) NEB SOLN NEB SCH ×6 (00:29→23:58)
[2022-07-31] MEDS: ACCU-CHEK COMFORT CURVE STRIP VI SCH ×6 (04:00→20:05)
[2022-07-31 05:00] VITALS: BP 158/78
[2022-07-31] MEDS: LEVOTHYROXINE SODIUM 25 MCG TAB PO SCH (06:13)
[2022-07-31] MEDS: INSULIN LANTUS (GLARGINE) 1 /0.01ml (100units/ml) SC SCH ×2 (06:35→21:55)
[2022-07-31 08:18] VITALS: BP 136/59
[2022-07-31] MEDS: ERTAPENEM SOD INJ 1 GM in SODIUM CHL 0.9% 50 ML IV SCH (09:27)
[2022-07-31] MEDS: MONTELUKAST SODIUM 10 MG TAB PO SCH (10:00)
[2022-07-31] MEDS: ENOXAPARIN SOD 40 MG/0.4 ML SYRINGE SC SCH (10:00)
[2022-07-31] MEDS: METOPROLOL TARTRATE 50 MG TAB PO SCH ×2 (13:11→21:56)
[2022-07-31] MEDS: DOCUSATE ORAL LIQUID 100 MG/10 ML UD GT SCH ×2 (13:13→22:11)
[2022-07-31] MEDS: amLODIPine BESYLATE 5 MG TAB PO SCH (13:13)
[2022-07-31 16:30] VITALS: BP 130/66
[2022-07-31] MEDS: SENNA 8.6 MG TAB PO SCH (21:55)
[2022-07-31 22:00] VITALS: BP 164/69
[2022-08-01 01:34] VITALS: BP 164/69
[2022-08-01] MEDS: ACCU-CHEK COMFORT CURVE STRIP VI SCH ×4 (04:00→12:24)
[2022-08-01 05:00] VITALS: BP 143/58
[2022-08-01] MEDS: ALBUTEROL SULF 2.5 MG/0.5ML(0.5%) NEB SOLN NEB SCH ×2 (06:28→13:24)
[2022-08-01] MEDS: IPRATROPIUM BROM 0.5 MG/2.5ML INH SOL NEB SCH ×2 (06:28→13:24)
[2022-08-01] MEDS: LEVOTHYROXINE SODIUM 25 MCG TAB PO SCH (06:40)
[2022-08-01] MEDS: INSULIN LANTUS (GLARGINE) 1 /0.01ml (100units/ml) SC SCH (06:42)
[2022-08-01 08:30] VITALS: BP 136/69
[2022-08-01] MEDS: amLODIPine BESYLATE 5 MG TAB PO SCH (10:38)
[2022-08-01] MEDS: MONTELUKAST SODIUM 10 MG TAB PO SCH (10:39)
[2022-08-01] MEDS: METOPROLOL TARTRATE 50 MG TAB PO SCH (10:39)
[2022-08-01] MEDS: ENOXAPARIN SOD 40 MG/0.4 ML SYRINGE SC SCH (10:40)
[2022-08-01] MEDS: ERTAPENEM SOD INJ 1 GM in SODIUM CHL 0.9% 50 ML IV SCH (10:40)
[2022-08-01] MEDS: DOCUSATE ORAL LIQUID 100 MG/10 ML UD GT SCH (11:03)
[2022-08-01 12:19] LABS: Basophils # (auto) 0 10 ^3/uL (0-0.2); Basophils % (auto) 0.9 % (0.0-2.0); Eosinophils # (auto) 0.7 10 ^3/uL (0-0.8); Eosinophils % (auto) 13.8 % (0.0-7.0); Hematocrit 24.8 % (41.0-53.0); Hemoglobin 8.5 g/dL (13.5-17.5); Lymphocytes # (auto) 0.9 10 ^3/uL (0.4-5.4); Lymphocytes % (auto) 18.2 % (10.0-50.0); Mean Corpuscular Hemoglobin 30.9 pg (28.0-32.0); Mean Corpuscular Hgb Conc. 34.1 g/dL (32.0-36.0); Mean Corpuscular Volume 90.7 fL (80.0-100.0); Monocytes # (auto) 0.5 10 ^3/uL (0-1.3); Monocytes % (auto) 10.2 % (0.0-12.0); Neutrophils % (auto) 56.9 % (37.0-80.0); Nucleated Red Blood Cells % 0.1 %; Red Blood Cells 2.73 10^6/uL (4.5-5.90); Red Cell Distribution Width 14.7 % (11.8-14.3); White Blood Cell 5.2 10^3/uL (4.4-10.8)
[2022-08-01 12:28] VITALS: BP 136/69
[2022-08-01 12:39] LABS: Potassium 3.8 mmol/L (3.5-5.1)
== END 2022-08-01 15:00 | DRG 870 ==
LOC: ER 18:56 → TELE 22:28 → ICU WEST 07-08 14:45 → TELE-EAST 07-22 01:30
PROVIDERS: ADMIT Nurse Practitioner Family; ATTEND Hospitalist
PROC: 5A1955Z Respiratory Ventilation, Greater than 96 Consecutive Hours (ICD-10-PCS; principal; 2022-07-08)
PROC: 0BH17EZ Insertion of Endotracheal Airway into Trachea, Via Natural or Artificial Opening (ICD-10-PCS; 2022-07-08)
PROC: 02HV33Z Insertion of Infusion Device into Superior Vena Cava, Percutaneous Approach (ICD-10-PCS; 2022-07-08)
PROC: B548ZZA Ultrasonography of Superior Vena Cava, Guidance (ICD-10-PCS; 2022-07-08)
PROC: 5A09357 Assistance with Respiratory Ventilation, Less than 24 Consecutive Hours, Continuous Positive Airway Pressure (ICD-10-PCS; 2022-07-08)
PROC: 0B9D8ZX Drainage of Right Middle Lung Lobe, Via Natural or Artificial Opening Endoscopic, Diagnostic (ICD-10-PCS; 2022-07-10)
DX: A41.89 Other specified sepsis (principal); J96.01 Acute respiratory failure with hypoxia; J18.9 Pneumonia, unspecified organism; J98.11 Atelectasis; E87.0 Hyperosmolality and hypernatremia; N17.9 Acute kidney failure, unspecified; G93.40 Encephalopathy, unspecified; L03.114 Cellulitis of left upper limb; Z99.11 Dependence on respirator [ventilator] status; G89.29 Other chronic pain; E11.22 Type 2 diabetes mellitus with diabetic chronic kidney disease; I16.0 Hypertensive urgency; L27.0 Generalized skin eruption due to drugs and medicaments taken internally; I48.91 Unspecified atrial fibrillation; M54.50 Low back pain, unspecified; R00.1 Bradycardia, unspecified; K59.00 Constipation, unspecified
CPT/HCPCS: 36415; 36600; 70551; 71045; 71260; 74177; 80048; 80053; 80069; 80202; 81001; 82140; 82570; 82805; 82947; 82962; 83036; 83605; 83735; 83880; 84100; 84132; 84156; 84300; 84484; 85007; 85025; 85027; 85379; 85610; 85730; 86703; 87040; 87070; 87077; 87081; 87186; 87205; 87426; 87804; 93005; 93306; 93970; 94002; 94003; 94640; 94660; 96365; 96372; 96375; 97110; 97116; 97163; 97530; C9113; G0378; J0171; J0696; J1335; J1815; J2250; J2405; J2543; J2704; J3490; J7060